=== PATIENT | male | born 1940 | race Caucasian/White ===

== ENCOUNTER 2023-11-10 19:59 | Emergency (ER) | payer OTHER, SELFPAY ==
[2023-11-10 20:00] VITALS: BP 186/86; PULSE 80; RESP 18; TEMP 36.9; O2SAT 100; BMI 22.5
--- NOTE | 2023-11-10 20:18 | EDS_ITS ---
HPI History of Present Illness Chief Complaint: Upper Extremity Injury Informant: patient Narrative Narrative: 83-year-old male states that this evening around 1730 hrs. he was sitting down when he suddenly felt a discomfort in his right biceps area. He states it began to swell and has progressively gotten larger and larger this evening. He notes some bruising beginning anteriorly. He states he was not lifting anything. He states is not really painful for him. He notes no symptoms below the elbow or above the shoulder. He takes a baby aspirin per day. States he has a history of a solitary kidney with kidney cancer. He states he takes an antibiotic for acne but does not know what it is. PFSH PFSH Medical History Hypertension Renal mass Allergy/AdvReac Type Severity Reaction Status Date / Time No Known Allergies Allergy Verified 11/10/23 20:06 Surgical History Hx of CABG Social History Smoking Status: Current every day smoker tobacco type: cigarettes ROS ROS ED Constitutional Constitutional ED: Denies chills or weight loss Eyes Eyes: Denies change in vision or diplopia ENT ENT ED: Denies ear pain, rhinorrhea or sore throat Cardiovascular Cardiovascular: Denies chest pain, orthopnea, palpitations or racing heartbeat Respiratory/Chest Respiratory/Chest: Denies cough, dyspnea or orthopnea Gastrointestinal Gastrointestinal: Denies abdominal pain, diarrhea, nausea or vomiting Genitourinary Genitourinary ED: Denies dysuria, hematuria or urinary frequency Musculoskeletal Musculoskeletal: Reports other Details: See history of present illness ; Denies arthralgias or myalgias Integumentary Denies abscess or rash Neurologic Neurologic: Denies headache(s) or weakness Psychiatric Psychiatric: Denies anxiety, depression, suicidal ideation or suicidal thoughts Endocrine Endocrinology: Denies polydipsia, polyphagia or polyuria Allergic/Immunologic Allergic/Immunologic ED: Denies mouth swelling, tongue swelling or urticaria EXAM Physical Exam Const Vital Signs: 11/10/23 20:00 Temperature 98.4 F Temperature Source Oral Pulse Rate 80 Respiratory Rate 18 Blood Pressure 186/86 H Blood Pressure Mean 119 Pulse Ox 100 Oxygen Delivery Method Room Air Positive well nourished and well developed General Appearance ED: well developed HEENT Reports normocephalic, head/scalp atraumatic and moist mucous membranes Eyes PERRL and EOMs intact bilaterally Neck no lymphadenopathy, supple and no JVD Resp normal respiratory effort and clear to auscultation bilaterally Cardio regular rate, regular rhythm and no murmurs GI normal to inspection, nondistended, normoactive bowel sounds and non-tender Palpation: soft Back/Spine no CVA tenderness and normal ROM Extremity Extremity Narrative: There is a large amount of swelling in the anterior aspect of the right arm. He is able to pronate supinate. He is able to flex and extend. Anterior aspect of the biceps region shows ecchymosis. He has a strong radial and ulnar pulse. Normal sensation of the hand. There does not appear to be any swelling in the posterior aspect of the arm in the triceps area. General Extremety ED: Negative for edema General Extremity: Negative for edema Neuro oriented x3 and CN's II-XII intact bilaterally Sensorium / Orientation: alert Motor Exam: strength 5/5 throughout Psych mental status grossly normal Mood & Affect: Negative for depressed or tearful Skin no rashes or lesions noted and no wounds MDM MDM MDM Narrative Medical decision making narrative: IV was established white count returns at 4 with a hemoglobin of 6.9. MCV 107.9 and he has a creatinine of 3.5. I do not have old values to compare to. This suggest to me that he probably has some degree of chronic anemia. His platelet count is 134. Coags are normal. Patient was taken to CT where a noncontrasted CT of the right upper arm was obtained. This demonstrated marked swelling of the biceps muscle concerning for intramuscular hematoma. Please see radiology read for further details. Patient was reassessed multiple times and slowly developed pain. Distally however the hand remains functional with strong radial and ulnar pulses and normal sensation. Patient was given TXA and Pantera wrap applied wrapping distal to proximal. Because the patient continues to have swelling and is now having pain concerned he could develop compartment syndrome which case I do not have orthopedics available to me tonight for management. I spoke with the patient who [place]. This is not something that the [facility] with typical handle on a emergent basis and would be best served at a trauma center. Contacted [facility] as the patient had no preference for facilities. Patient was discussed with on-call trauma surgeon and the on-call emergency physician. A repeat H&H was sent shows a hemoglobin of 6.2. I am goi ng to see if I can get him a unit of blood before transfer. History & Record Review Discussion w/independent historian: Patient Management Discussion w/another healthcare provider: Forming Machine Tender ([facility] Trauma Surgeon and on duty ED physician) Critical Care Time Critical Care Time: Yes Critical care time (excluding procedures): 30-74 minutes (35 min), Including time spent:, Discussing w/Patient &/or Family/Film Projector Operator, Discussing w/Consultants, Arranging Admission or Transfer and Performing Direct Patient Care at Bedside Discharge Plan Triage Chief Complaint: Upper Extremity Injury ED Provider: Mark Moreau Dx/Rx/DC Orders Clinical Impression: Anemia, Arm pain, right, Hematoma of muscle Primary Care Provider: Aysha Mueller,Out of Referrals: [facility] Doctor,Out of [Primary Care Provider] - Disposition Disposition: Acute Care Hospital Discharge Location: [facility]
[2023-11-10 20:37] LABS: Absolute Lymphocyte Count 0.58 X10^3/uL (0.83-4.51); Absolute Neutrophil Count 3.2 X10^3/uL (2.0-7.7); Basophil# 0.01 X10^3/uL; Basophil% 0.2 % (0-1); Eosinophil# 0.15 X10^3/uL; Eosinophils% 3.7 % (0-5); Hematocrit 21.8 % (40-54); Hemoglobin 6.9 g/dL (13.0-16.5); Lymphocyte # 0.58 X10^3/ul (0.83-4.51); Lymphocyte % 14.5 % (19-41); Mean Corp Hgb Conc 31.7 g/dL (32-36); Mean Corpuscular Hgb 34.2 pg (27.0-32.0); Mean Corpuscular Volume 107.9 fL (80-94); Monocyte# 0.06 X10^3/uL; Monocyte% 1.5 % (0-10); NRBC Flagged by Analyzer 0 % (0-5); Neutrophil % 79.9 % (47-70); POSITIVE DIFFERENTIAL YES; Platelet Count 134 K/mm3 (150-450); RBC Distribution Width CV 15.4 % (11.6-14.6); RBC Distribution Width SD 61.2 fl (35.1-43.9); Red Blood Count 2.02 M/mm3 (4.6-6.2)
[2023-11-10 20:45] LABS: International Normalized Ratio 1.1; Prothrombin Time (Protime)PT. 14.4 SECONDS (11.7-14.9)
[2023-11-10 20:46] LABS: Anion Gap 6 (5-15); BUN 54 mg/dL (7-18); BUN/Creat Ratio 15.4 RATIO (10-20); Calcium,Total 8.2 mg/dL (8.5-10.1); Chloride 111 mmol/L (98-107); Creatinine, Serum 3.51 mg/dL (0.70-1.30); EST Glomerular Filtration Rate 18 mL/min (>60); Est Glom Filt Rate - Afr Amer 22 mL/min (>60); Estimated Creatinine Clearance 15.22 ml/min; Glucose 180 mg/dL (74-106); Partial Thromboplast Time 26.3 Seconds (24.1-36.2); Sodium Level 141 mmol/L (136-145)
--- NOTE | 2023-11-10 21:11 | CT_ITS ---
HISTORY: swelling Date: 11/10/2023 10:46 PM Technique: CT examination obtained with standard protocol including axial imaging with multiplanar reconstructions. Location: RIGHT upper extremity Contrast: No contrast administered Radiation Dose (provided by facility) CTDIvol (24.68 ) mGy, DLP ( 3783.25) mGy-cm Comparison: No previous imaging available for comparison. FINDINGS: BONY ELEMENTS: 1. Normal alignment bony elements without evidence of fracture malalignment. No destructive bony process noted. 2. Mild degenerative periarticular erosions involving the greater tubercle. JOINT SPACES: 1. Normal appearance of alignment of bony elements and joint spaces. No joint effusion 2. Mild osteophyte formation at the glenohumeral joint and at the AC joint. DEEP MUSCULAR COMPARTMENTS: 1. Marked abnormality of the flexor compartment of the arm with marked enlargement of the biceps with heterogeneous appearance, focal areas of hyperdensity are noted, and findings suspicious of an intramuscular hematoma. Intramuscular abscess or mass is not completely excluded on current noncontrast exam however felt less likely. 2. Normal appearance of the deltoid, and the extensor compartments. NEURAL VASCULAR COMPARTMENTS: 1. Normal appearance of the neural vascular compartments SUBCUTANEOUS SOFT TISSUES. 1. Moderate subcutaneous soft tissue swelling/edema noted involving the anterior upper arm. OTHER: There is a large complex mass in the RIGHT subhepatic upper abdomen incompletely evaluated on current examination which appears represent a large renal mass. CT/Extremity Upper without Contra IMPRESSION: 1. Marked abnormality of the RIGHT biceps with significant swelling, heterogeneous density with focal areas of diffusely increased density, findings suspicious of a large loculated intramuscular hematoma. 2. Additional considerations are felt less likely which could include intramuscular abscess and less likely mass. 3. Consider follow-up evaluation with MRI for further clarification if clinically necessary. 4. Normal appearance of the bony elements, mild degenerative changes involving the glenohumeral joint and RIGHT AC joint. 5. Large RIGHT renal mass suspected however incompletely visualized on current examination. Electronically Signed: Alen Wilkins MD at 0:05 EDT ,
[2023-11-10 21:26] LABS: Differential Indicated SCAN CRITERIA MET
[2023-11-10 21:28] LABS: Anisocytosis 1+; Hypochromasia RARE; Macrocytosis 1+; Ovalocyte RARE; Platelet Estimate SLT DEC (ADEQ); Red Cell Morphology N CHROM NORMAL (NORM C&C)
[2023-11-10 22:00] VITALS: BP 187/91; PULSE 75; RESP 20; O2SAT 100
[2023-11-10] MEDS: Morphine 4 MG/ML Syringe IV (22:37)
[2023-11-10] MEDS: Ondansetron 4 MG/2 ML Vial IV (22:37)
[2023-11-11] VITALS: BP 160/83; PULSE 69; RESP 20; O2SAT 100
[2023-11-11 00:37] LABS: Hemoglobin 6.2 g/dL (13.0-16.5)
[2023-11-11] MEDS: TRANEXAMIC ACID 1,000 MG in 0.9% Normal Saline (100mL Bag) 100 ML 440 MG IV (00:57)
[2023-11-11 02:14] VITALS: BP 155/82; PULSE 113; RESP 25; TEMP 36.8; O2SAT 100
[2023-11-11 02:30] VITALS: BP 151/91; PULSE 89; RESP 16; TEMP 36.6; O2SAT 100
[2023-11-11 03:19] VITALS: BP 120/99; PULSE 84; RESP 14; TEMP 36.5; O2SAT 100
[2023-11-11 03:24] VITALS: BP 120/99; PULSE 80; RESP 18; TEMP 36.5; O2SAT 100
[2023-11-12 13:29] LABS: Pathologist Review Reviewed
== END 2023-11-11 03:31 | disposition short-term general hospital (02) ==
PROVIDERS: Emergency Provider Emergency Medicine; Visit Provider Emergency Medicine
DX: D64.9 Anemia, unspecified (principal); F17.210 Nicotine dependence, cigarettes, uncomplicated; M79.601 Pain in right arm; I10 Essential (primary) hypertension; Z79.82 Long term (current) use of aspirin; Q60.0 Renal agenesis, unilateral; Z85.528 Personal history of other malignant neoplasm of kidney
CPT/HCPCS: 36430; 73200; 80048; 85014; 85018; 85025; 85610; 85730; 86850; 86900; 86901; 86920; 96361; 96374; 96375; 99284; P9016; J2405

== ENCOUNTER 2024-02-04 19:35 | Inpatient (IN) | payer OTHER, SELFPAY ==
[2024-02-04] VITALS (7 sets, daily range): BP systolic 131–151; BP diastolic 78–111; PULSE 70–102; RESP 19–30; TEMP 36.7–36.8; O2SAT 93–100; BMI 21.7; BMI 21.9
--- NOTE | 2024-02-04 19:47 | EKG12_ITS ---
Test Reason : SOB Blood Pressure : / mmHG Vent. Rate : 079 BPM Atrial Rate : 079 BPM P-R Int : 170 ms QRS Dur : 096 ms QT Int : 406 ms P-R-T Axes : 000 024 230 degrees QTc Int : 465 ms Sinus rhythm with occasional Premature ventricular complexes and Premature atrial complexes T wave abnormality, consider anterior ischemia Prolonged QT Abnormal ECG Confirmed by Kyle Gong ([id number]), newspaper editor managing RYANN ANDUJAR ([id number]) on 02/06/2024 11:33:42 AM Referred By: LINNEA Confirmed By:Kyle Gong
--- NOTE | 2024-02-04 19:55 | RAD_ITS ---
INDICATION: Dyspnea EXAMINATION/TECHNIQUE: X-RAY - XR Chest 2 Views COMPARISON: None. FINDINGS: LINES/DEVICES: None. LUNGS: Hyperinflation. Hazy left lower lobe retrocardiac opacity with pleural effusion. No consolidation or vascular congestion. MEDIASTINUM AND CARDIOVASCULAR STRUCTURES: Cardiac silhouette within upper normal limits. CABG changes. BONES AND SOFT TISSUES: No acute findings. RAD/Chest PA and Lateral IMPRESSION: Left lower lobe infiltrate with pleural effusion. Findings consistent with pneumonia. Recommend follow-up to complete resolution. Electronically Signed: Billy Kim MD at 20:37 EDT ,
[2024-02-04 20:07] LABS: Absolute Lymphocyte Count 0.67 X10^3/uL (0.83-4.51); Absolute Neutrophil Count 2.5 X10^3/uL (2.0-7.7); Basophil# 0.01 X10^3/uL; Basophil% 0.3 % (0-1); Eosinophil# 0.13 X10^3/uL; Eosinophils% 3.8 % (0-5); Hematocrit 23.1 % (40-54); Lymphocyte # 0.67 X10^3/ul (0.83-4.51); Lymphocyte % 19.6 % (19-41); Mean Corp Hgb Conc 30.3 g/dL (32-36); Mean Corpuscular Hgb 35.4 pg (27.0-32.0); Mean Corpuscular Volume 116.7 fL (80-94); Mean Platelet Vol. 12.7 fl (6.2-12.0); Monocyte# 0.04 X10^3/uL; Monocyte% 1.2 % (0-10); NRBC Flagged by Analyzer 1.5 % (0-5); Neutrophil # 2.54 X10^3/uL (2.7-7.7); Neutrophil % 74.2 % (47-70); POSITIVE COUNT YES; POSITIVE MORPHOLOGY YES; Platelet Count 66 K/mm3 (150-450); RBC Distribution Width SD 87.8 fl (35.1-43.9); Red Blood Count 1.98 M/mm3 (4.6-6.2); White Blood Count 3.4 K/mm3 (4.4-11.0)
--- NOTE | 2024-02-04 20:12 | EDS_ITS ---
HPI History of Present Illness Chief Complaint: Shortness of Breath Detail of Chief Complaint: Patient denies shortness of breath he states he is here because his legs ar Informant: patient Onset/Context/Timing Onset: Days Context: Gradual Onset Timing: Continuous Quality: Edema lower extremities Location: Distal his knees Current Severity: Moderate Maximum Severity: Moderate Worsened by: Suspect due to decreased movement and sitting Relieved by: Nothing Associated Symptoms Associated Symptoms: No chest pain, no shortness of breath, no orthopnea or PND PFSH PFSH Medical History Renal mass Hypertension Allergy/AdvReac Type Severity Reaction Status Date / Time No Known Allergies Allergy Verified 02/04/24 19:35 Surgical History Hx of CABG Social History Smoking Status: Current every day smoker tobacco type: cigarettes ROS ROS ED Constitutional Constitutional ED: Denies chills, fever(s), subjective, sweats or weight loss Eyes Eyes: Denies blurry vision, change in vision or diplopia ENT ENT ED: Denies ear pain, rhinorrhea or sore throat Cardiovascular Cardiovascular: Denies chest pain, orthopnea, palpitations or paroxysmal nocturnal dyspnea Respiratory/Chest Respiratory/Chest: Denies cough, dyspnea, dyspnea on exertion, orthopnea or paroxysmal nocturnal dyspnea Gastrointestinal Gastrointestinal: Denies abdominal pain, nausea or vomiting Musculoskeletal Musculoskeletal: Denies arthralgias or myalgias Integumentary Reports other Details: Blisters and bruising dorsal surface of the right and left heart ; Denies abscess Neurologic Neurologic: Denies headache(s) or paresthesias Endocrine Endocrinology: Denies cold intolerance or heat intolerance Hematologic/Lymphatic Hematologic/Lymphatic: Reports systems reviewed and no addt'l complaints, except as documented EXAM Physical Exam Const Vital Signs: 02/04/24 19:35 02/04/24 19:35 02/04/24 19:41 Temperature 98.3 F 98.3 F Temperature Source Oral Oral Pulse Rate 82 80 Respiratory Rate 26 H 30 H Respiratory Effort Short of Breath Respiratory Depth Normal Respiratory Pattern Normal Blood Pressure 151/87 H 151/87 H Blood Pressure Mean 108 108 Pulse Ox 100 100 Oxygen Delivery Method Room Air Room Air Room Air Positive well nourished and well developed Constitutional Narrative: Blood pressure is elevated. Patient's respiratory rate is rapid however on my exam he was not breathing rapidly and appears in no respiratory distress. General Appearance ED: well developed, NAD and pallor; Negative for cyanotic or diaphoretic HEENT Reports moist mucous membranes HEENT Narrative: Head is atraumatic normocephalic. Ears normal. Nares patent. Conjunctive is slightly pink. Eyes PERRL and EOMs intact bilaterally General Eye ED: Negative for scleral icterus Neck no lymphadenopathy, supple and no JVD Chest Wall inspection of chest normal and palpation of chest normal Resp normal respiratory effort and clear to auscultation bilaterally Cardio regular rate, regular rhythm, S1 normal heart sound, S2 normal heart sound and no murmurs GI normal to inspection, nondistended, normoactive bowel sounds, non-tender, non- distended and no masses; Negative for hepatosplenomegaly Back/Spine no CVA tenderness Extremity Extremity Narrative: Patient has marked pitting edema of his lower extremities. There are blisters noted which have spontaneously ruptured. Is no evidence infection. There is a bruise noted dorsal surface of the left foot. Neuro oriented x3 and CN's II-XII intact bilaterally Sensorium / Orientation: alert Psych mental status grossly normal Skin no rashes or lesions noted Skin Narrative: Blisters that spontaneously ruptured dorsum of the left and right foot. General Skin Exam: pallor; Negative for jaundice MDM MDM MDM Narrative Medical decision making narrative: Differential diagnosis includes CHF, malnourishment with hypoalbuminemia, dependent edema because he sits a lot. Since he has no abnormal auscultatory findings and denies orthopnea chest x-ray was not obtained. Lab Data Attestation: I reviewed the patient's lab results. Lab results narrative: Patient has chronic macrocytic anemia. His hemoglobin slightly higher than normal. Electrolyte panel reveals an elevated BUN and creatinine from baseline. BUN is 73 with creatinine of 4.45. His estimated GFR is 14. Albumin is low at 2.2. Labs: Laboratory Results - last 24 hr 02/04/24 19:43 WBC 3.4 L RBC 1.98 L Hgb 7.0 L Hct 23.1 L MCV 116.7 H MCH 35.4 H MCHC 30.3 L RDW Std Deviation 87.8 H RDW Coeff of Corinna 21.0 H Plt Count 66 L MPV 12.7 H Immature Gran % (Auto) 0.900 Neut % (Auto) 74.2 H Lymph % (Auto) 19.6 Angelina % (Auto) 1.2 Eos % (Auto) 3.8 Baso % (Auto) 0.3 Absolute Neuts (auto) 2.5 Absolute Lymphs (auto) 0.67 L Nucleated RBC % 1.5 Sodium 140 Potassium 4.4 Chloride 111 H Carbon Dioxide 23.0 Anion Gap 6 BUN 73 H Creatinine 4.45 H Estim Creat Clear Calc 11.53 Est GFR (MDRD) Af Amer 16 L Est GFR (MDRD) Non-Af 14 L BUN/Creatinine Ratio 16.4 Glucose 111 H Calcium 7.7 L Total Bilirubin 0.60 AST 11 L ALT 17 Alkaline Phosphatase 63 Total Protein 7.5 Albumin 2.2 L Globulin 5.3 H Albumin/Globulin Ratio 0.4 L Radiography Chest X-Ray - ED: 2 View and Read by ED Physician (No acute abnormality. Cardiac silhouette is normal. Cardiac size is normal. Lung parenchyma is unremarkable. There is no effusion. There is no infiltrate. [place]um is unremarkable. Osseous trucks unremarkable. This is 100 reviewed interpreted by me at 2011.) Diagnostic Testing: Clinical Impression(s) from Imaging Studies Chest X-Ray 02/04/24 19:55 IMPRESSION: Left lower lobe infiltrate with pleural effusion. Findings consistent with pneumonia. Recommend follow-up to complete resolution. Electronically Signed: Billy Kim MD at 20:37 EDT Reading Location ID and State: [facility] / [place] Tel , Service support , Radiology report was read. Patient film is first about suboptimal. I disagree that there is a left lower lobe pneumonia. Patient does not have an elevated white count. He is not febrile or hypoxic. His pulse ox is 100% on room air more importantly his lung exam revealed no rales, wheezing or rhonchi. EKG Initial EKG: Attestation: I personally reviewed and interpreted this EKG as follows: Interpretation: Sinus Rhythm (EKG per nurse protocol is unremarkable. Normal sinus rhythm with an occasional premature ventricular beat. Rate is 79. Parables 170 ms per cures duration 96 ms. QT duration 406 ms. [place] is normal. There is prolongation of the QT interval. There is no ossific changes noted in lead I to and aVL) Discharge Plan Triage Chief Complaint: Shortness of Breath ED Provider: Jean Paul Dunne Dx/Rx/DC Orders Clinical Impression: Lymphedema of both lower extremities, Anemia, macrocytic, Edema due to hypoalbuminemia, Acute renal failure superimposed on chronic kidney disease Instructions: Anemia, ED Peripheral Edema, Bilateral Primary Care Provider: [place] Referrals: [facility] Doctor,Out of [Non-Staff] - 1-2 Weeks Activity Restrictions/Additional Instructions: 1. Must elevate feet above your nose 2. Need compressive thigh-high hose 3. Wound care for blisters on the feet 4. Male nourishment Print Language: Czech Disposition Disposition: Home, Self Care
[2024-02-04 20:31] LABS: ALB/GLOB Ratio 0.4 RATIO (0.9-2.4); AST(SGOT) 11 U/L (15-37); Alanine Aminotransfer ALT/SGPT 17 U/L (16-61); Albumin, Serum 2.2 g/dL (3.2-5.0); Alkaline Phosphatase 63 U/L (45-117); Anion Gap 6 (5-15); BUN 73 mg/dL (7-18); BUN/Creat Ratio 16.4 RATIO (10-20); Calcium,Total 7.7 mg/dL (8.5-10.1); Chloride 111 mmol/L (98-107); Creatinine, Serum 4.45 mg/dL (0.70-1.30); Differential Indicated SCAN CRITERIA MET; EST Glomerular Filtration Rate 14 mL/min (>60); Est Glom Filt Rate - Afr Amer 16 mL/min (>60); Estimated Creatinine Clearance 11.53 ml/min; Globulin 5.3 g/dL (2.2-4.2); Glucose 111 mg/dL (74-106); Potassium 4.4 mmol/L (3.5-5.1); Protein, Total 7.5 g/dL (6.4-8.2); Sodium Level 140 mmol/L (136-145)
[2024-02-04 21:01] LABS: Anisocytosis 2+; Hypochromasia RARE; Macrocytosis 2+; Ovalocyte RARE; Platelet Estimate MOD DEC (ADEQ); Red Cell Morphology N CHROM NORMAL (NORM C&C)
--- NOTE | 2024-02-04 22:47 | HP.PCM_ITS ---
HPI - General General Date of Admission: 02/04/24 Date of Service: 02/04/24 Chief Complaint: Shortness of breath HPI Narrative TONIA DOLAN, is a 83 M who presents to the emergency room with chief complaint of shortness of breath. Patient has a past medical history of chronic kidney disease and lymphedema. Patient complains of worsening shortness of breath with lower extremity edema that is pitting and seeping. Patient has trouble ambulating states he only eats about 1 sandwich per day. Initial plan from the emergency room was to admit patient directly to [facility] however there were no beds available at the time and hospitalist service was asked to admit patient for observation while they are pending transfer for hospital bed at [facility]. Patient is unable to care for himself at home therefore will admit to observation pending transfer to [facility]. Patient denies any nausea, vomiting or fever or chills at present time he does have severe lower extremity edema from his knees to his ankles and feet and shortness of breath. Laboratory studies reveal white blood cell count of 3.4 with, hemoglobin 7, hematocrit 23, platelets 66, sodium 140, potassium 4.4, chloride 111, bicarb 23, BUN 73, creatinine 4.45 (up from 3.51 3 months ago), glucose 111, albumin 2.2 chest x-ray reveals left lower lobe infiltrate [facility] Medical History Renal mass Hypertension Allergy/AdvReac Type Severity Reaction Status Date / Time No Known Allergies Allergy Verified 02/04/24 19:35 Surgical History Hx of CABG Social History Smoking Status: Current every day smoker tobacco type: cigarettes ROS Constitutional Constitutional: Denies chills or fever(s) Eyes Eyes: Denies blurry vision ENT HEENT: Denies abnormal hearing Cardiovascular Cardiovascular: Denies chest pain Respiratory/Chest Respiratory/Chest: Reports shortness of breath at rest Gastrointestinal Gastrointestinal: Denies abdominal pain Genitourinary Genitourinary: Denies dysuria Musculoskeletal Musculoskeletal: Denies back pain Integumentary Integumentary: Denies dry skin Neurologic Neurologic: Denies confusion Psychiatric Psychiatric: Denies anxiety Endocrine Endocrinology: Reports change in body appearance Vital Signs Vital Signs Vital Signs: 02/04/24 19:35 02/04/24 19:35 02/04/24 19:41 Temperature 98.3 F 98.3 F Temperature Source Oral Oral Pulse Rate 82 80 Respiratory Rate 26 H 30 H Respiratory Effort Short of Breath Respiratory Depth Normal Respiratory Pattern Normal Blood Pressure 151/87 H 151/87 H Blood Pressure Mean 108 108 Pulse Ox 100 100 Oxygen Delivery Method Room Air Room Air Room Air 02/04/24 20:35 02/04/24 21:35 02/04/24 22:00 Temperature Temperature Source Pulse Rate 70 71 74 Respiratory Rate 23 H 20 H 19 H Respiratory Effort Respiratory Depth Respiratory Pattern Blood Pressure 131/97 H 149/78 H 147/111 H Blood Pressure Mean 108 101 123 Pulse Ox 100 93 95 Oxygen Delivery Method Room Air Room Air Room Air 02/04/24 22:44 Temperature 98.1 F Temperature Source Pulse Rate 81 Respiratory Rate 22 H Respiratory Effort Respiratory Depth Respiratory Pattern Blood Pressure 138/88 H Blood Pressure Mean 104 Pulse Ox 97 Oxygen Delivery Method Weight Weight: 138 lb Body Mass Index (BMI) 21.7 Physical Exam Const oriented x3 Constitutional Narrative: Enlarged mass on left temporomandibular joint consistent with salivary gland enlargement Orientation / Consciousness: lethargic Eyes PERRL and EOMs intact bilaterally Neck No no lymphadenopathy Lymph Lymphatic: Negative for no lymphadenopathy noted Resp Auscultation: rales bilateral and diminished lung sounds Cardio regular rate, regular rhythm, S1 normal heart sound and S2 normal heart sound GI normal to inspection, nondistended, normoactive bowel sounds Extremity normal capillary refill General Extremity: edema bilateral lower extremity Details: severe Skin Skin Narrative: Mild seeping from edema of the lower extremities Neuro no focal motor deficits and no sensory deficits noted Speech: speech normal Psych thought process normal, cooperative and affect normal Results Lab / Micro Data 02/04/24 19:43 02/04/24 19:43 Labs: Laboratory Results - last 24 hr 02/04/24 19:43: WBC 3.4 L, RBC 1.98 L, Hgb 7.0 L, Hct 23.1 L, MCV 116.7 H, MCH 35.4 H, MCHC 30.3 L, RDW Std Deviation 87.8 H, RDW Coeff of Corinna 21.0 H, Plt Count 66 L, MPV 12.7 H, Immature Gran % (Auto) 0.900, Neut % (Auto) 74.2 H, Lymph % (Auto) 19.6, [place] % (Auto) 1.2, Eos % (Auto) 3.8, Baso % (Auto) 0.3, Absolute Neuts (auto) 2.5, Absolute Lymphs (auto) 0.67 L, Nucleated RBC % 1.5, Platelet Estimate MOD DEC, RBC Morphology N CHROM, Hypochromasia RARE, Anisocytosis 2+, Macrocytosis 2+, Ovalocytes RARE, Sodium 140, Potassium 4.4, C hloride 111 H, Carbon Dioxide 23.0, Anion Gap 6, BUN 73 H, Creatinine 4.45 H, Estim Creat Clear Calc 11.53, Est GFR (MDRD) Af Amer 16 L, Est GFR (MDRD) Non-Af 14 L, BUN/Creatinine Ratio 16.4, Glucose 111 H, Calcium 7.7 L, Total Bilirubin 0.60, AST 11 L, ALT 17, Alkaline Phosphatase 63, Total Protein 7.5, Albumin 2.2 L, Globulin 5.3 H, Albumin/Globulin Ratio 0.4 L Imaging Radiology Impression Chest X-Ray 02/04/24 19:55 IMPRESSION: Left lower lobe infiltrate with pleural effusion. Findings consistent with pneumonia. Recommend follow-up to complete resolution. Electronically Signed: Billy Kim MD at 20:37 EDT Reading Location ID and State: [address] [place] [address] Tel , Service support , Assessment & Plan Assessment/Plan (1) Pneumonia: (2) Adult failure to thrive: (3) Acute renal failure superimposed on chronic kidney disease: (4) Edema due to hypoalbuminemia: (5) Anemia, macrocytic: (6) Lymphedema of both lower extremities: PLAN: Plan 1 failure to thrive.?Patient is unable to care for himself and will be admitted to [facility] for long-term care. 2. Pneumonia?Place patient on levofloxacin 500 mg IV daily 3. Acute on chronic renal failure?gentle IV hydration overnight repeat BMP in the morning 4. Edema due to hypoalbuminemia?recommend compression wrap during the day on lower extremities and consider diuretic therapy when renal function improves 5. DVT prophylaxis?SCDs if patient can tolerate Charges/Coding Visit Charges OBSV E&M: 89958 Observ/hosp same date L2
[2024-02-05] VITALS (14 sets, daily range): BP systolic 130–147; BP diastolic 69–88; PULSE 59–88; RESP 16–22; TEMP 36.5–37.2; O2SAT 97–100
[2024-02-05] MEDS: levoFLOXacin IV 500 MG/100 ML BAG 100 MG IV (00:04)
[2024-02-05] MEDS: 0.9% Saline Lock 10 ML Syringe IV ×2 (00:04→21:10)
[2024-02-05] MEDS: 0.9% Normal Saline (1000mL) 1,000 ML 75 ML IV ×2 (00:04→16:32)
[2024-02-05 08:01] LABS: Anion Gap 7 (5-15); BUN 70 mg/dL (7-18); Calcium,Total 7.4 mg/dL (8.5-10.1); Chloride 112 mmol/L (98-107); Creatinine, Serum 4.12 mg/dL (0.70-1.30); EST Glomerular Filtration Rate 15 mL/min (>60); Est Glom Filt Rate - Afr Amer 18 mL/min (>60); Estimated Creatinine Clearance 12.63 ml/min; Glucose 83 mg/dL (74-106); Potassium 4.6 mmol/L (3.5-5.1); Sodium Level 139 mmol/L (136-145)
[2024-02-05] MEDS: Ensure Plus High Protein 120 ML LIQUID PO ×3 (08:18→16:32)
[2024-02-05 09:58] LABS: Absolute Lymphocyte Count 0.86 X10^3/uL (0.83-4.51); Absolute Neutrophil Count 2.2 X10^3/uL (2.0-7.7); Basophil# 0.01 X10^3/uL; Basophil% 0.3 % (0-1); Eosinophil# 0.16 X10^3/uL; Eosinophils% 4.9 % (0-5); Hematocrit 21.7 % (40-54); Hemoglobin 6.8 g/dL (13.0-16.5); Lymphocyte # 0.86 X10^3/ul (0.83-4.51); Lymphocyte % 26.5 % (19-41); Mean Corp Hgb Conc 31.3 g/dL (32-36); Mean Corpuscular Hgb 36.8 pg (27.0-32.0); Mean Corpuscular Volume 117.3 fL (80-94); Monocyte# 0.04 X10^3/uL; Monocyte% 1.2 % (0-10); NRBC Flagged by Analyzer 0.9 % (0-5); Neutrophil # 2.15 X10^3/uL (2.7-7.7); Neutrophil % 66.5 % (47-70); POSITIVE COUNT YES; POSITIVE MORPHOLOGY YES; Platelet Count 57 K/mm3 (150-450); RBC Distribution Width CV 20.4 % (11.6-14.6); RBC Distribution Width SD 88.5 fl (35.1-43.9); Red Blood Count 1.85 M/mm3 (4.6-6.2); White Blood Count 3.2 K/mm3 (4.4-11.0)
[2024-02-05 10:18] LABS: Differential Indicated SCAN CRITERIA MET
[2024-02-05] MEDS: Albuterol 2.5 MG/3 ML VIAL.NEB. INHALATION ×2 (10:22→19:43)
[2024-02-05 10:57] LABS: Anisocytosis 2+; Differential Comment SCANNED; Platelet Estimate MKD DEC (ADEQ)
--- NOTE | 2024-02-05 11:50 | CASEMGMT ---
Addendum entered by Alondra Smart 02/05/24 15:22: Social Work [facility] called [facility] back. She states that pt is not service connected. If he were to need rehab, [facility] at [facility], would need transferred to [facility] to the hospital and then go from there. If pt were to need home health or DME, Dr. Julian Salazar would need to order home health, and Dr. Salazar's RN can help w/DME. If pt were to need aide services, RAD Tripp can help with this. As per Qasim, the home assessment was paused as pt came into the hospital. SW/JEAN-PAUL will continue to follow to assist w/appropriate discharge plan. LEONARD Franklin Original Note: Social Work SW met w/pt, spoke w/him regarding prior level of function and anticipated discharge plan. PCP/Specialists: [facility] goes to the [facility] Insurance: [facility] only has [facility] Prescriptions: Pt gets all meds from the [facility] Living arrangements/Prior level of function: Pt lives alone in a one story home with 3 steps into the garage. Pt has been independent with ADLs, though states it is becoming more difficult. Pt states it is difficult for him to clean, goes out to get sandwiches to eat. Pt does still drive. LW/POA: Pt has not completed these documents, not certain who he would put as POA. LNOK: Pt states his last sibling just . Pt is single, no children. DME: Pt does not use any, no home O2. Pt states he may have a walker/cane somewhere in the home from when his mother used DME HHC/SNF: No history of either. Pt states [facility]. Plan: SW spoke w/pt about longterm plan. Pt states from here would want to go home. Pt states eventually he knows he can't manage at home alone. Pt states is not service connected at all, but [facility] has been paying for what he needs. Pt may be interested in home O2 through the [facility] should he need it. Pt open to MOW as well. SW asked pt about going to [facility] for oysterman care, as that is documented. He states it was his understanding plan was to go to [facility] from heree, but not for longterm care. [facility] called the [facility], message left for RAD [place] to verify pt's service connection and to verify pt did have the initial home assessment. SW/CM will continue to follow, will see how pt does with therapy and see what else pt may need for discharge. LEONARD Franklin
--- NOTE | 2024-02-05 15:57 | CASEMGMT ---
Social Work SW received a call back from JEAN-PAUL Quach for pt from the [facility]. He states to call Maury at [phone], [phone], who is the RN for pt's physician. LEONARD Franklin
--- NOTE | 2024-02-05 17:17 | ECHOD_ITS ---
Reason For Study: Edema Procedure This was a 2D Doppler, Color Flow transthoracic echocardiogram. Exam performed portable in patient room. Left Ventricle Mildly dilated left ventricle. Moderate global left ventricular hypokinesis. Estimated LVEF 40%. Grade 2 diastolic dysfunction. Right Ventricle Normal RV size. Mild global right ventricular systolic dysfunction. Atria There is mild biatrial dilatation. Mitral Valve Moderate to severe posteriorly directed mitral valve regurgitation. Tricuspid Valve Mild tricuspid valve insufficiency. Right ventricular systolic pressure estimated to be 54 mmHg. Aortic Valve Moderate diffuse thickening of the aortic valve leaflets. Aortic valve leaflet excursion limited. Consider mild aortic valve stenosis. Pulmonic Valve The pulmonic valve is not well visualized. Mild (1+) pulmonic valve insufficiency. Great Vessels Normal sized aortic root. Pericardium/Pleural No pericardial effusion. Moderate size left pleural effusion. MMode/2D Measurements & Calculations LVIDd: 5.6 cm IVSd: 1.3 cm LVOT diam: 2.5 cm LVIDs: 4.8 cm LVPWd: 1.3 cm LVOT area: 5.1 cm2 RVDd: 5.2 cm FS: 14.5 % Ao root diam: 3.1 cm LAV(MOD-bp): 59.7 ml LVAd ap4: 39.2 cm2 LAV(MOD-bp) Indexed: 34.4 ml/m2 LVLd ap4: 8.9 cm LAV(MOD-sp2): 66.0 ml EDV(MOD-sp4): 144.3 ml LAV(MOD-sp4): 53.3 ml EDV(sp4-el): 147.5 ml LVAs ap4: 27.7 cm2 LVLs ap4: 7.6 cm ESV(MOD-sp4): 83.0 ml ESV(sp4-el): 85.5 ml EF(MOD-sp4): 42.5 % EF(sp4-el): 42.1 % LVAd ap2: 35.3 cm2 SV(MOD-sp4): 61.3 ml SV(MOD-sp2): 45.1 ml LVLd ap2: 8.0 cm EDV(MOD-sp2): 130.8 ml EDV(sp2-el): 132.6 ml LVAs ap2: 27.1 cm2 LVLs ap2: 7.2 cm ESV(MOD-sp2): 85.7 ml ESV(sp2-el): 86.8 ml EF(MOD-sp2): 34.5 % SV(sp4-el): 62.0 ml LA A4 area: 19.2 cm2 RA A4 area: 21.3 cm2 TAPSE: 1.1 cm Time Measurements MV dec time: 0.23 sec Doppler Measurements & Calculations MV E max felix: 93.9 cm/sec Lat Peak E' Felix: 7.6 cm/sec Med Peak E' Felix: 3.6 cm/sec MV A max felix: 80.3 cm/sec E/E' lat: 12.3 E/E' med: 26.2 MV E/A: 1.2 MV dec slope: 416.6 cm/sec2 Ao V2 max: 170.7 cm/sec LV V1 max: 116.4 cm/sec Ao max P.7 mmHg LV V1 max P.4 mmHg Ao V2 mean: 104.0 cm/sec LV V1 mean P.7 mmHg Ao mean P.5 mmHg LV V1 mean: 93.2 cm/sec Ao V2 VTI: 28.6 cm LV V1 VTI: 20.8 cm AV (velocity ratio): 0.73 DAGO(I,D): 3.7 cm2 DAGO(V,D): 3.5 cm2 MR max felix: 538.7 cm/sec SV(LVOT): 105.7 ml PA V2 max: 122.4 cm/sec MR max P.5 mmHg PA max PG (full): 3.7 mmHg MR mean felix: 414.9 cm/sec MR mean P.1 mmHg MR VTI: 159.2 cm TR max felix: 312.3 cm/sec TR max P.0 mmHg ECHO/Echo Complete Interpretation Summary Mildly dilated left ventricle. Moderate global left ventricular hypokinesis. Estimated LVEF 40%. Grade 2 diast olic dysfunction. Mild global right ventricular systolic dysfunction. There is mild biatrial dilatation. Moderate to severe posteriorly directed mitral valve regurgitation. Mild tricuspid valve insufficiency. Right ventricular systolic pressure estimated to be 54 mmHg. Aortic valve leaflet excursion limited. Consider mild aortic valve stenosis. Mild (1+) pulmonic valve insufficiency. Moderate size left pleural effusion. Ordering Physician: Arcelia Hutson Referring Physician: [facility] Performed By: Marie Gutierrez, ORLIN, RVT
--- NOTE | 2024-02-05 17:21 | PN.HOSP_ITS ---
Subjective Subjective Patient asking if he can go home. We discussed that he is not anywhere near ready to go home at this time. Multiple lab abnormalities and clinical findings. He is agreeable to go for rehab if need be. I did discuss with him that were not even close to getting him out of the hospital to get as he has significant workup that needs to be performed. Objective Data Objective Data Vital Signs: Vital Signs Temp Pulse Resp BP Pulse Ox O2 Del Method O2 Flow Rate 98.9 F 59 L 18 130/76 H 100 Room Air 3 02/05/24 16:33 02/05/24 16:33 02/05/24 16:36 02/05/24 16:33 02/05/24 16:33 02/05/24 16:36 02/05/24 14:58 Oxygen Flow Rate (L/min) 3 Oxygen Delivery Method Room Air Weight: 63.5 kg Body Mass Index (BMI) 21.9 Intake & Output: Intake and Output for Last 24 Hours 02/03/24 02/04/24 02/05/24 23:59 23:59 23:59 Intake Total 1868.75 / 1868.75 Output Total 350 / 350 Balance 1518.75 / 1518.75 Lab / Micro Data 02/05/24 06:37 02/05/24 06:37 Labs: Laboratory Results - last 24 hr 02/04/24 19:43: WBC 3.4 L, RBC 1.98 L, Hgb 7.0 L, Hct 23.1 L, MCV 116.7 H, MCH 35.4 H, MCHC 30.3 L, RDW Std Deviation 87.8 H, RDW Coeff of Corinna 21.0 H, Plt Count 66 L, MPV 12.7 H, Immature Gran % (Auto) 0.900, Neut % (Auto) 74.2 H, Lymph % (Auto) 19.6, Cotton % (Auto) 1.2, Eos % (Auto) 3.8, Baso % (Auto) 0.3, Absolute Neuts (auto) 2.5, Absolute Lymphs (auto) 0.67 L, Nucleated RBC % 1.5, Platelet Estimate MOD DEC, RBC Morphology N CHROM, Hypochromasia RARE, Anisocytosis 2+, Macrocytosis 2+, Ovalocytes RARE, Sodium 140, Potassium 4.4, C hloride 111 H, Carbon Dioxide 23.0, Anion Gap 6, BUN 73 H, Creatinine 4.45 H, Estim Creat Clear Calc 11.53, Est GFR (MDRD) Af Amer 16 L, Est GFR (MDRD) Non-Af 14 L, BUN/Creatinine Ratio 16.4, Glucose 111 H, Calcium 7.7 L, Total Bilirubin 0.60, AST 11 L, ALT 17, Alkaline Phosphatase 63, Total Protein 7.5, Albumin 2.2 L, Globulin 5.3 H, Albumin/Globulin Ratio 0.4 L 02/05/24 06:37: WBC 3.2 L, RBC 1.85 L, Hgb 6.8 L, Hct 21.7 L, MCV 117.3 H, MCH 36.8 H, MCHC 31.3 L, RDW Std Deviation 88.5 H, RDW Coeff of Corinna 20.4 H, Plt Count 57 L, MPV 13.0 H, Immature Gran % (Auto) 0.600, Neut % (Auto) 66.5, Lymph % (Auto) 26.5, Cotton % (Auto) 1.2, Eos % (Auto) 4.9, Baso % (Auto) 0.3, Absolute Neuts (auto) 2.2, Absolute Lymphs (auto) 0.86, Nucleated RBC % 0.9, Differential Comment SCANNED, Platelet Estimate MKD DEC, Anisocytosis 2+, Sodium 139, Potassium 4.6, Chloride 112 H, Carbon Dioxide 20.0 L, Anion Gap 7, BUN 70 H, C reatinine 4.12 H, Estim Creat Clear Calc 12.63, Est GFR (MDRD) Af Amer 18 L, Est GFR (MDRD) Non-Af 15 L, BUN/Creatinine Ratio 17.0, Glucose 83, Calcium 7.4 L Radiography Diagnostic Testing: Radiology Impression Chest X-Ray 02/04/24 19:55 IMPRESSION: Left lower lobe infiltrate with pleural effusion. Findings consistent with pneumonia. Recommend follow-up to complete resolution. Electronically Signed: Billy Kim MD at 20:37 EDT , Physical Exam Const alert, oriented x3 and no apparent distress; Negative for average body habitus, healthy appearing or well nourished Constitutional Narrative: Cooperative, elderly, white male, sitting up in a chair at the bedside, currently on 2 L,, appears chronically ill and malnourished HEENT head/scalp atraumatic and moist oral mucous membranes HEENT Narrative: Dentition is poor, Mallampati is 2, no thrush, temporal wasting noted Head and Scalp: normocephalic Eyes PERRL and EOMs intact bilaterally Eyes Narrative: No scleral icterus, marked conjunctival pallor bilaterally Neck no lymphadenopathy and supple Neck Narrative: Large left-sided mass at the angle of the mandible on the left--> chronic, trachea midline, no thyroid lodgment noted Resp normal respiratory effort, no retractions and no use of accessory muscles Resp Narrative: Diffusely diminished with more diminishment at the left base, dullness to percussion on the left base Auscultation: Negative for rales, rhonchi or wheezes Cardio regular rate, regular rhythm, S1 normal heart sound, S2 normal heart sound, no rub, no gallops and no clicks; Negative for no murmurs Cardio Narrative: 3/6 systolic murmur loudest at left lower sternal border GI normal to inspection, nondistended, normoactive bowel sounds, soft to palpation and non-tender GI Narrative: Abdomen is scaphoid Extremity Extremity Narrative: Marked bilateral lower extremity edema, no cyanosis or clubbing, significant loss of lean muscle mass Skin Skin Narrative: Skin is thin, multiple scattered ecchymosis diffusely Neuro oriented x3, CN's II-XII intact bilaterally, moves all extremities and no focal motor deficits Neuro Narrative: Severe generalized weakness bilaterally upper and lower extremities proximal greater than distal Speech: speech normal Psych affect normal Psych Narrative: Very pleasant, interacts appropriately, appreciative of care Assessment & Plan Assessment/Plan (1) Pancytopenia: (2) Lower extremity edema: (3) LUKE (acute kidney injury): (4) Severe malnutrition: (5) Pleural effusion, right: PLAN: Plan Pancytopenia -Etiology is unclear -Hold aspirin -Check HIV and hepatitis studies -Check CT chest and abdomen/pelvis without contrast due to renal dysfunction -Check coag panel -Check iron studies -Check ferritin level -Check reticulocyte count -Check B12 level -Check folic acid level -Check stool guaiac -Transfused 2 units packed red blood cells now -Repeat CBC in a.m. -Consult hematology/oncology LUKE on CKD stage IV -Patient with history of nephrectomy due to renal cell carcinoma -Baseline creatinine is unclear however he was seen in the emergency department on 11/10/2023 and serum creatinine was 3.51 -4.45 on admission -Renally dose all medications -Hold lisinopril -Continue gentle hydration but transition to LR -Check UA -Check CT abdomen pelvis without contrast -Consult nephrology Lower extremity edema -Check BNP -Check echocardiogram -Patient with extremely poor nutritional status so she could be related to poor oncotic pressure or renal dysfunction -Check UA to rule out nephrotic syndrome -Elevate Right pleural effusion -Checks x-ray reviewed and overall based on symptoms and clinical findings highly doubt pneumonia -Suspect this is an effusion with compression atelectasis -Check CT of the chest -discontinue antibiotics -If effusion is large on CT may need thoracentesis Generalized weakness/debility -suspect related to deconditioning and multiple comorbidities -PT/OT consultation -Case management social work consultation following and patient agreeable to placement at discharge Left facial mass -Patient reports he had this biopsied and it was not malignant -[facility] records requested Severe malnutrition -dietitian is following -Add multivitamin -Continue Ensure GERD -Continue home PPI Essential HTN/HPL/CAD -Appears this patient has had previous bypass as there are sternotomy wires on chest x-ray -Hold lisinopril -Hold amlodipine -Continue home atenolol -Hold niacinamide History of renal cancer -Status post nephrectomy -Imaging as above Depression/anxiety -Continue mirtazapine but alter dose from 45 mg daily to 7.5 mg daily due to renal dysfunction -Continue home BuSpar DVT prophylaxis -SCDs -Chemoprophylaxis contraindicated due to thrombocytopenia and anemia Patient appears to have a complex medical history however no data in our chart and patient is a poor historian. Requested records from [place]. Charges/Coding Visit Charges Inpatient E&M: 94089 [facility] Hosp L3
--- NOTE | 2024-02-05 17:23 | CT_ITS ---
STUDY: CT CHEST, ABDOMEN T PELVIS WITHOUT CONTRAST REASON FOR EXAM: Male, 83 years old. Renal mass RADIATION DOSAGE (If Supplied By Facility): CTDIvol = ( 7.24 ) mGy, DLP = ( 567.88 ) mGycm TECHNIQUE: Transaxial imaging was performed without the administration of intravenous contrast material. Multiplanar coronal and sagittal images were reformatted. Individualized dose optimization techniques were used for this CT. COMPARISON: No relevant priors. FINDINGS: CHEST There is lower lung consolidation. There are small bilateral pleural effusions. Sternal cerclage wires are present from a prior sternotomy. There are calcifications of the coronary arteries. Normal mediastinum. Normal hilar regions. Normal unenhanced pulmonary arteries. There is atherosclerotic calcification of the aortic arch with tortuosity and elongation of the aortic arch and descending thoracic aorta. There are multi-level degenerative changes of the thoracic spine. There is no demonstrated abnormality of the visualized upper abdomen. ABDOMEN There is lower lobe consolidation and pleural effusions. There are sternotomy wires. There are granulomatous calcifications in the liver The gallbladder is contracted. There are multiple benign calcified granulomata of the spleen. Normal pancreas. Normal bilateral adrenal glands. There is 9.2 cm increased density mass in the mid aspect of the kidney. There are 3.1 and 1.9 cm cysts of the right kidney. This is severe atrophy of the left kidney. Normal visualized stomach. Normal small intestine. There are multiple colonic diverticula consistent with diverticulosis. The appendix is visualized and appears normal. 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 Normal inferior vena cava. Normal retroperitoneum. There is left lower abdominal wall hernia containing small intestine loop. There are diffuse degenerative changes of the visualized lumbar spine. PELVIS Normal urinary bladder. Normal visualized small intestine. There are multiple colonic diverticula of the sigmoid colon consistent with chronic diverticulosis. There is no pelvic fluid. There is no pelvic lymphadenopathy or mass lesion. There is diffuse atherosclerotic calcification of the pelvic arteries. There is left lower abdominal wall hernia containing bowel loop. Normal osseous structures. CT/CT Chest, Abd, Pelvis WO Cont IMPRESSION: Large mass of the right kidney consistent with neoplastic malignancy. Contrast-enhanced exam recommended for further evaluation. There is severe atrophy of the left kidney. Abdominal aortic aneurysm. Colonic diverticulosis. No obstruction. Left lower abdominal wall hernia containing bowel. Lower lung consolidation and pleural effusions. Electronically Signed: Darrion Mortensen MD at 19:11 EDT ,
[2024-02-05 18:32] LABS: Immature Platelet Fraction 5.8 % (1.0-7.9); Platelet Count 58 K/mm3 (150-450); RET-HE 34.2 pg (30-35)
[2024-02-05] MEDS: Lactated Ringers 1,000 ML 75 ML IV (18:35)
[2024-02-05 18:49] LABS: Ferritin 608 ng/mL (26-388); Iron 84 ug/dL (65-175); Iron Binding Capacity,Total 171 ug/dL (250-450); PERCENT IRON SATURATION 49.1 % (15.0-55.0)
[2024-02-05 18:58] LABS: Vitamin B12 924 pg/mL (211-911)
[2024-02-05 19:25] LABS: Hepatitis B Surface Antibody Non-Reactive; Hepatitis C Antibody Non-Reactive (Nonreactive)
[2024-02-05 19:36] LABS: BNP,B-Type NATRIURETIC PEPTIDE > 5000.0 pg/mL (0-100)
[2024-02-05 20:27] LABS: HIV - WCH Non-Reactive (Nonreactive); Hepatitis B Surface Antigen Non-Reactive (Nonreactive)
[2024-02-05] MEDS: busPIRone 15 MG TABLET PO (21:09)
[2024-02-05] MEDS: Mirtazapine 15 MG Tablet 7.5 MG PO (21:10)
[2024-02-05 22:20] LABS: Mucous, Urine 0 SEEN /hpf (<or=2+); Red Blood Cells-Urine 0 SEEN /hpf (0-5); Squamous Epithelial Cells - UA 0 SEEN /hpf (0-5); White Blood Cells 0 SEEN /hpf (0-5)
[2024-02-05 22:26] LABS: Color, Urine Yellow (Yellow); Glucose, Dipstick Normal (Normal); Ketone-Dipstick Negative (Negative); Leukocyte Esterase-Dipstick Negative /ul (Negative); Nitrite-Dipstick Negative (Negative); Occult Blood-Urine 10 /ul (Negative); Protein-Dipstick 500 mg/dl (Negative); Specific Gravity, Urine 1.015 (1.002-1.030); Urine Bilirubin Dipstick Negative (Negative); Urine Clarity Clear (Clear); Urine Urobilinogen Normal (Normal)
--- NOTE | 2024-02-05 22:29 | PCM.HOSP.N ---
Hospitalist Note CT shows renal mass on the R. Interestingly, it is documented that he has had previous nephrectomy however both kidneys (L is markedly atrophic) are present on the CT. Will need to discuss with pt and see how he wants to pursue. Likely not a good surgical candidate given all of his complex medical issues present at this time. BNP markedly elevated. D/C IVF and give lasix 40 mg x 1 and check renal response.
[2024-02-05 22:32] LABS: Bacteria RARE /hpf (None Seen)
[2024-02-05 23:40] LABS: Urine Sodium 41 mmol/L (Not Establ.)
[2024-02-06] VITALS (13 sets, daily range): BP systolic 122–158; BP diastolic 74–94; PULSE 62–84; RESP 16–18; TEMP 36.3–37; O2SAT 93–100
[2024-02-06] MEDS: Furosemide 40 MG/4 ML Vial IV (00:30)
[2024-02-06] MEDS: 0.9% Saline Lock 10 ML Syringe IV ×3 (00:30→21:18)
--- NOTE | 2024-02-06 07:36 | PCM.PN.HOSP ---
Reason for Visit Reason for Visit: Diagnoses Nutritional anemia, unspecified (02/05/24) Other pancytopenia (02/05/24) Unspecified severe protein-calorie malnutrition (02/05/24) Other disorders of plasma-protein metabolism, not elsewhere classified (02/05/24) Lymphedema, not elsewhere classified (02/05/24) Pneumonia, unspecified organism (02/05/24) Pleural effusion, not elsewhere classified (02/05/24) Acute kidney failure, unspecified (02/05/24) Chronic kidney disease, unspecified (02/05/24) Localized edema (02/05/24) Adult failure to thrive (02/05/24) Subjective Subjective Spies he has been transferred to the [place] already. States that he has been aware of right kidney mass for years but did not wish to undergo surgery because he has an atrophic left kidney which would lead him to being on dialysis. Objective Data Objective Data Vital Signs: Vital Signs Temp Pulse Resp BP Pulse Ox O2 Del Method O2 Flow Rate 36.3 C L 66 16 158/88 H 100 Room Air 3 02/06/24 04:03 02/06/24 04:03 02/06/24 04:03 02/06/24 04:03 02/06/24 04:03 02/06/24 04:03 02/05/24 14:58 Oxygen Flow Rate (L/min) 3 Oxygen Delivery Method Room Air Weight: 63.5 kg Body Mass Index (BMI) 21.9 Intake & Output: Intake and Output for Last 24 Hours 02/04/24 02/05/24 02/06/24 23:59 23:59 23:59 Intake Total 3101.25 / 3101.25 2 / 2 Output Total 800 / 1050 250 / 250 Balance 2301.25 / 2051.25 -248 / -248 Lab / Micro Data 02/06/24 06:40 02/05/24 06:37 Labs: Laboratory Results - last 24 hr 02/05/24 06:37: WBC 3.2 L, RBC 1.85 L, Hgb 6.8 L, Hct 21.7 L, MCV 117.3 H, MCH 36.8 H, MCHC 31.3 L, RDW Std Deviation 88.5 H, RDW Coeff of Corinna 20.4 H, Plt Count 57 L, MPV 13.0 H, Immature Gran % (Auto) 0.600, Neut % (Auto) 66.5, Lymph % (Auto) 26.5, [place] % (Auto) 1.2, Eos % (Auto) 4.9, Baso % (Auto) 0.3, Absolute Neuts (auto) 2.2, Absolute Lymphs (auto) 0.86, Nucleated RBC % 0.9, Differential Comment SCANNED, Platelet Estimate MKD DEC, Anisocytosis 2+, Sodium 139, Potassium 4.6, Chloride 112 H, Carbon Dioxide 20.0 L, Anion Gap 7, BUN 70 H, Creatinine 4.12 H, Estim Creat Clear Calc 12.63, Est GFR (MDRD) Af Amer 18 L, Est GFR (MDRD) Non-Af 15 L, BUN/Creatinine Ratio 17.0, Glucose 83, Calcium 7.4 L 02/05/24 18:15: Immature Plt Fraction 5.8, Retic Count 3.30 H, Immature Retic Fraction 21.50 H, Retic Hgb Equivalent 34.2, Iron 84, TIBC 171 L, Iron Saturation 49.1, Ferritin 608 H, B-Natriuretic Peptide > 5000.0 H, Vitamin B12 924 H, Folate 7.10, Hep Bs Antigen Non-Reactive, Hep Bs Antibody Non-Reactive, Hepatitis C Antibody Non-Reactive, HIV 1&2 Antibody Non-Reactive, Blood Type B POSITIVE, Antibody Screen NEGATIVE, Direct Antiglob Test NEG w/POLYSPECIFIC, Crossmatch See Detail 02/05/24 20:30: Urine Color Yellow, Urine Clarity Clear, Urine pH 6.0, Ur Specific Horace 1.015, Urine Protein 500 H, Urine Glucose (UA) Normal, Urine Ketones Negative, Urine Occult Blood 10 H, Urine Nitrite Negative, Urine Bilirubin Negative, Urine Urobilinogen Normal, Ur Leukocyte Esterase Negative, Urine RBC 0 SEEN, Urine WBC 0 SEEN, Ur Squamous Epith Cells 0 SEEN, Urine Bacteria RARE, Urine Mucus 0 SEEN, Ur Random Sodium 41, Urine Creatinine 67.60 Radiography Diagnostic Testing: Radiology Impression Chest/Abdomen/Pelvis CT 02/05/24 17:23 IMPRESSION: Large mass of the right kidney consistent with neoplastic malignancy. Contrast-enhanced exam recommended for further evaluation. There is severe atrophy of the left kidney. Abdominal aortic aneurysm. Colonic diverticulosis. No obstruction. Left lower abdominal wall hernia containing bowel. Lower lung consolidation and pleural effusions. Electronically Signed: Darrion Mortensen MD at 19:11 EDT , Physical Exam Const alert and no apparent distress Constitutional Narrative: Cachectic. Afebrile. Resp normal respiratory effort, no retractions, no use of accessory muscles and clear to auscultation bilaterally Cardio regular rate, regular rhythm, S1 normal heart sound and S2 normal heart sound GI normal to inspection, nondistended, normoactive bowel sounds, soft to palpation, non-tender and non-distended Neuro Sensorium / Orientation: awake and alert Assessment & Plan Assessment/Plan (1) Pancytopenia: (2) Lower extremity edema: (3) LUKE (acute kidney injury): (4) Severe malnutrition: (5) Pleural effusion, right: PLAN: Plan Pancytopenia Suspect malignancy associated. Hold aspirin HIV and hepatitis negative. Coagulation studies negative. Iron studies, B12, folate WNL. Check stool guaiac Transfused 2 units packed red blood cells now. Consult hematology/oncology LUKE on CKD stage IV Patient with history of nephrectomy due to renal cell carcinoma Baseline creatinine is unclear however he was seen in the emergency department on 11/10/2023 and serum creatinine was 3.51 on admission was 4.45 Hold lisinopril Continue gentle hydration but transition to LR CT w/o contrast showed large mass right kidney Consult nephrology Renal mass. 9.2 cm oncology consulted. Likely malignant. Patient has been made aware of this mass for years now but did not wish to have it removed because he has an atrophic left kidney and he did not want to go onto dialysis. Lower extremity edema BNP elevated. echo pending Bilateral pleural effusion Doubt PNA Generalized weakness/debility PT OT Severe malnutrition dietitian is following. Add multivitamin. Continue Ensure Chronic conditions: Left facial mass-Patient reports he had this biopsied and it was not malignant-[facility] GERD-Continue home PPI Essential HTN/HPL/CAD-Appears this patient has had previous bypass as there are sternotomy wires on chest x-ray-Hold lisinopril-Hold amlodipine-Continue home atenolol-Hold niacinamide Depression/anxiety-Continue mirtazapine but alter dose from 45 mg daily to 7.5 mg daily due to renal dysfunction-Continue home BuSpar DVT prophylaxis: SCDs Patient requesting transfer to the [facility]. Case management has reached out to the [facility] and heard back after 3 PM. The family caseworker at the [facility] stated that the physician will review the data I want to send over and will inform us on the whether not the patient will be excepted. Greater than 55 minutes of which greater than 50% of time was reviewing the patient's case with him at bedside, discussing the renal mass, pancytopenia, bone marrow biopsy. Charges/Coding Visit Charges Inpatient E&M: 32200 Subs Hosp L3
[2024-02-06 07:54] LABS: Absolute Lymphocyte Count 0.88 X10^3/uL (0.83-4.51); Absolute Neutrophil Count 2.1 X10^3/uL (2.0-7.7); Basophil# 0.01 X10^3/uL; Basophil% 0.3 % (0-1); Eosinophil# 0.16 X10^3/uL; Hematocrit 28.3 % (40-54); Hemoglobin 8.8 g/dL (13.0-16.5); Lymphocyte # 0.88 X10^3/ul (0.83-4.51); Lymphocyte % 27.8 % (19-41); Mean Corp Hgb Conc 31.1 g/dL (32-36); Mean Corpuscular Hgb 33.6 pg (27.0-32.0); Mean Platelet Vol. 12.3 fl (6.2-12.0); Monocyte# 0.04 X10^3/uL; Monocyte% 1.3 % (0-10); NRBC Flagged by Analyzer 1.3 % (0-5); Neutrophil # 2.05 X10^3/uL (2.7-7.7); POSITIVE COUNT YES; POSITIVE MORPHOLOGY YES; RBC Distribution Width CV 24.8 % (11.6-14.6); RBC Distribution Width SD 96.6 fl (35.1-43.9); Red Blood Count 2.62 M/mm3 (4.6-6.2); White Blood Count 3.2 K/mm3 (4.4-11.0)
[2024-02-06 07:56] LABS: International Normalized Ratio 1.3; Prothrombin Time (Protime)PT. 15.7 SECONDS (11.7-14.9)
[2024-02-06 07:57] LABS: Partial Thromboplast Time 30.9 Seconds (24.1-36.2)
[2024-02-06] MEDS: Albuterol 2.5 MG/3 ML VIAL.NEB. INHALATION ×3 (08:03→19:31)
[2024-02-06 08:11] LABS: Differential Indicated SCAN CRITERIA MET; Platelet Count 49 K/mm3 (150-450)
[2024-02-06 08:12] LABS: Neutrophil % 64.7 % (47-70)
[2024-02-06 08:14] LABS: Phosphorus 3.8 mg/dL (2.5-4.9)
[2024-02-06 08:49] LABS: Anisocytosis 2+; Platelet Estimate MOD DEC (ADEQ)
--- NOTE | 2024-02-06 09:27 | ONC.CONSULT ---
Assessment & Plan Assessment/Plan (1) Pancytopenia: Status: Acute Code(s): D61.818 - Other pancytopenia Plan: Etiology of pancytopenia is multifactorial, includes renal failure, kidney mass, medications. Patient would like to be transferred to the [facility] for further management. If he stays then a bone marrow aspiration and biopsy can be done to rule out bone marrow failure. Suggest supportive care with PRBC transfusion as needed, Platelet transfusion if platelet is less than 10K. (2) Renal mass, right: Status: Acute Code(s): N28.89 - Other specified disorders of kidney and ureter Plan: Pt says he has declined therapy at the [facility]. To do observation. HPI Consult Data Date of Service:: 02/06/24 PCP / Referring Provider: [facility] Attending: Dr. Kp Hood DO Chief Complaint Chief Complaint: Asked to see Pt for Pancytopenia. History of Present Illness History of Present Illness: 83-year-old man with history of right kidney mass, atrophic left kidney, renal failure who has declined dialysis was admitted with leukopenia, anemia and thrombocytopenia. He reports that he receives treatment at the [facility]. Advanced Directives Power of Export Coordinator: No Living Will: No [facility] Medical History (Updated 02/06/24 @ 12:[address] Elvis Pickens MD) GERD (gastroesophageal reflux disease) Hyperlipidemia Anxiety Depression CKD (chronic kidney disease), stage IV Renal mass Hypertension Home Medications ?Medication ?Instructions ?Recorded ?Last Taken ?Type albuterol 90 mcg/actuation aerosol 90 mcg inhalation BID 02/05/24 Unknown History inhaler amlodipine 2.5 mg tablet 2.5 mg PO DAILY 02/05/24 Unknown History aspirin 81 mg tablet,delayed 81 mg PO DAILY 02/05/24 Unknown History release atenolol 25 mg tablet 25 mg PO DAILY 02/05/24 Unknown History buspirone 5 mg tablet 15 mg PO .HS 02/05/24 Unknown History cyanocobalamin (vitamin B-12) 1,000 mcg PO DAILY 02/05/24 Unknown History 1,000 mcg tablet (Vitamin B-12) lisinopril 10 mg tablet 10 mg PO DAILY 02/05/24 Unknown History magnesium oxide 400 mg PO DAILY 02/05/24 Unknown History mirtazapine 45 mg tablet 45 mg PO QHS 02/05/24 Unknown History niacinamide 500 mg tablet 500 mg PO TID 02/05/24 Unknown History pantoprazole 20 mg tablet,delayed 20 mg PO DAILY 02/05/24 Unknown History release zinc acetate 50 mg (zinc) capsule 50 mg PO DAILY 02/05/24 Unknown History Allergy/AdvReac Type Severity Reaction Status Date / Time No Known Allergies Allergy Verified 02/04/24 19:35 Surgical History (Updated 02/05/24 @ 17:[address] Arcelia Hutson DO) History of nephrectomy Hx of CABG Social History Smoking Status: Current every day smoker tobacco type: cigarettes Physical Exam Const alert, oriented x3 and no apparent distress HEENT normocephalic Eyes PERRL, conjunctivae normal and no scleral icterus Neck supple Lymph Lymphatic: no lymphadenopathy noted Resp normal respiratory effort and clear to auscultation bilaterally Cardio S1 normal heart sound and S2 normal heart sound GI normal to inspection, nondistended, normoactive bowel sounds Extremity Extremity Narrative: +pedal edema Skin no rashes or lesions noted Neuro CN's II-XII intact bilaterally and moves all extremities Neuro Narrative: Gait slow Psych mental status grossly normal Vital Signs Temperature 97.4 F L 02/06/24 04:03 Temperature Source Oral 02/06/24 04:03 Pulse Rate 79 02/06/24 06:50 Pulse Strength Normal (2+) 02/05/24 10:00 Respiratory Rate 17 02/06/24 06:50 Respiratory Effort Normal, Non-Labored 02/06/24 01:17 Respiratory Depth Normal 02/06/24 01:17 Respiratory Pattern Normal 02/06/24 06:50 Blood Pressure 158/88 H 02/06/24 04:03 Blood Pressure Mean 111 02/06/24 04:03 Blood Pressure Source Monitor 02/06/24 04:03 Blood Pressure Position Semi-Fowlers 02/06/24 04:03 Blood Pressure Location Right Arm 02/06/24 04:03 Pulse Ox 96 02/06/24 06:50 Oxygen Delivery Method Room Air 02/06/24 06:50 Oxygen Flow Rate (L/min) 3 02/05/24 14:58 Laboratory Results - last 24 hr 02/05/24 06:37: WBC 3.2 L, RBC 1.85 L, Hgb 6.8 L, Hct 21.7 L, MCV 117.3 H, MCH 36.8 H, MCHC 31.3 L, RDW Std Deviation 88.5 H, RDW Coeff of [place]in[place] 20.4 H, Plt Count 57 L, MPV 13.0 H, Immature Gran % (Auto) 0.600, Neut % (Auto) 66.5, Lymph % (Auto) 26.5, Sharkey % (Auto) 1.2, Eos % (Auto) 4.9, Baso % (Auto) 0.3, Absolute Neuts (auto) 2.2, Absolute Lymphs (auto) 0.86, Nucleated RBC % 0.9, Differential Comment SCANNED, Platelet Estimate MKD DEC, Anisocytosis 2+ 02/05/24 18:15: Immature Plt Fraction 5.8, Retic Count 3.30 H, Immature Retic Fraction 21.50 H, Retic Hgb Equivalent 34.2, Iron 84, TIBC 171 L, Iron Saturation 49.1, Ferritin 608 H, B-Natriuretic Peptide > 5000.0 H, Vitamin B12 924 H, Folate 7.10, Hep Bs Antigen Non-Reactive, Hep Bs Antibody Non-Reactive, Hepatitis C Antibody Non-Reactive, HIV 1&2 Antibody Non-Reactive, Blood Type B POSITIVE, Antibody Screen NEGATIVE, Direct Antiglob Test NEG w/POLYSPECIFIC, Crossmatch See Detail 02/05/24 18:15: Crossmatch See Detail 02/05/24 20:30: Urine Color Yellow, Urine Clarity Clear, Urine pH 6.0, Ur Specific [place] 1.015, Urine Protein 500 H, Urine Glucose (UA) Normal, Urine Ketones Negative, Urine Occult Blood 10 H, Urine Nitrite Negative, Urine Bilirubin Negative, Urine Urobilinogen Normal, Ur Leukocyte Esterase Negative, Urine RBC 0 SEEN, Urine WBC 0 SEEN, Ur Squamous Epith Cells 0 SEEN, Urine Bacteria RARE, Urine Mucus 0 SEEN, Ur Random Sodium 41, Urine Creatinine 67.60 02/06/24 06:40: WBC 3.2 L, RBC 2.62 L, Hgb 8.8 L, Hct 28.3 L, MCV 108.0 H D, MCH 33.6 H, MCHC 31.1 L, RDW Std Deviation 96.6 H, RDW Coeff of [place]in[place] 24.8 H, Plt Count 49 L*, MPV 12.3 H, Immature Gran % (Auto) 0.900, Neut % (Auto) 64.7, Lymph % (Auto) 27.8, Sharkey % (Auto) 1.3, Eos % (Auto) 5.0, Baso % (Auto) 0.3, Absolute Neuts (auto) 2.1, Absolute Lymphs (auto) 0.88, Nucleated RBC % 1.3, Diff Path Review May foll, Platelet Estimate MOD DEC, Anisocytosis 2+, PT 15.7 H, INR 1.3, APTT 30.9, Phosphorus 3.8, Magnesium 1.0 L Microbiology 02/05/24 01:15 Stool Stool Occult Blood (LUCY) - Final Diagnostic Data Chest X-Ray 02/04/24 19:55 IMPRESSION: Left lower lobe infiltrate with pleural effusion. Findings consistent with pneumonia. Recommend follow-up to complete resolution. Electronically Signed: Billy Kim MD at 20:37 EDT , Chest/Abdomen/Pelvis CT 02/05/24 17:23 IMPRESSION: Large mass of the right kidney consistent with neoplastic malignancy. Contrast-enhanced exam recommended for further evaluation. There is severe atrophy of the left kidney. Abdominal aortic aneurysm. Colonic diverticulosis. No obstruction. Left lower abdominal wall hernia containing bowel. Lower lung consolidation and pleural effusions. Electronically Signed: Darrion Mortensen MD at 19:11 EDT , Charges/Coding Visit Charges Office Visits / Consults: 64193 IP Consult L3
[2024-02-06] MEDS: Ensure Plus High Protein 120 ML LIQUID PO (10:01)
[2024-02-06] MEDS: Pantoprazole Sodium 20 MG Tablet PO (10:01)
[2024-02-06] MEDS: Atenolol 25 MG Tablet PO (10:01)
[2024-02-06] MEDS: Magnesium Chloride 64 MG Delay Rel.Tablet 128 MG PO (10:01)
[2024-02-06] MEDS: Multivitamins,Therapeutic Tablet 1 TABLET PO (10:01)
--- NOTE | 2024-02-06 10:13 | CASEMGMT ---
Social Work SW met with pt and introduced self and role of SW. SW inquiring about discharge plan with pt. Pt stating that he would like to be transferred to the [place] [facility] for care and he would like to know why he has not been accepted there. SW will look into this. Pt states that if he is ready for discharge he feels like he can return home alone. SW inquired about HHC and pt is agreeable to this. Pt would like referral to [place] to restart home health aid process and would like a referral to [facility]. Pt states he has a walker and cane at home that he can use when he returns home. SW spoke with RNCM and physician who are agreeable pt is appropriate for further followup at [facility]. RNCM to follow up on this. WILLY Mart
--- NOTE | 2024-02-06 10:13 | CASEMGMT ---
Addendum entered by Matilde Urbina 02/06/24 16:04: MEAGAN JEONG into pt room, [facility] but that it may not happen if approved until tomorrow or Sunday. Pt agreeable to this. Pt states everything today is such an effort, more than yesterday. Pt denies needing his nurse or any other needs at this time. Addendum entered by Matilde Urbina 02/06/24 15:40: Received tc from Main at the [facility], he is aware that [facility]. He requested pt chart to be faxed. Faxed at this time to [phone]. All progress notes, consults, labs, vitals, therapy notes, current meds faxed. He states he will present to the physician and will get back to this RN CM tomorrow. If pt were to trf, it would be or Sunday. Updated hospitalist. Addendum entered by Matilde Urbina 02/06/24 10:52: [id number]- RN JEAN-PAUL into pt room, pt sitting up in chair. [facility] is aware that the [facility] and his CM will be in at 3pm and a message was left for him. He is aware that this RN CM will keep him updated with any progress. Pt is appreciative of the information. Original Note: Received notification from RAD and hospitalist that pt would like to be trf'd to [facility] for further work up. TC to transfer center, pt has been assigned rehabilitation case coordinator Main who works 2nd shift and comes in [place] 3pm. [place] [phone]. There is no one covering for him and RN CM must wait until he returns call when he comes in per rep. Left message on Main's voicemail that pt wishes to be trf'd and requested returned call.
--- NOTE | 2024-02-06 14:50 | CON.PCM.RE_ITS ---
Assessment & Plan Assessment/Plan (1) Renal mass, right: PLAN: Huge right renal mass. Likely RCC. (2) LUKE (acute kidney injury): PLAN: Came with a creatinine of 4.5, slightly better at 4.[address] abdomen. Atrophic left kidney, right kidney is essentially replaced by mass. Mass is about 9 to 10 cm. He says he knew about the mass for several years now and follow-up with [facility] urology/nephrology. He did not want dialysis after nephrectomy since that is only working kidney hence surgery was not pursued. 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 He still not interested in dialysis. Given most of his care is from [facility], it is probably better if he gets transferred back to [facility] for continued T of care. Not acutely uremic. Has massive peripheral edema but breathing looks stable. dw hospitalist. transfer to be initiated HPI Consult Data Date of Consult: 02/06/24 HPI Narrative Reason for Consultation: Acute renal failure HPI Narrative: TONIA DOLAN, is a 83 M who presents To the hospital with massive lower extremity edema. Nephrology on consultation in view of acute renal failure. Limited history. Most of his records are from [facility]. No prior baseline kidney function available. He says he has seen nephrology at [facility] in the past, possibly urology as well. Current creatinine about 4.1. No uremia. Massive lower extremity edema which he says has been worsening over the last several weeks. Breathing looks comfortable. Poor appetite. Possibly some muscle weight loss recently. [facility] Medical History (Updated 02/06/24 @ 12:[address] Elvis Pickens MD) GERD (gastroesophageal reflux disease) Hyperlipidemia Anxiety Depression CKD (chronic kidney disease), stage IV Renal mass Hypertension Home Medications ?Medication ?Instructions ?Recorded ?Last Taken ?Type albuterol 90 mcg/actuation aerosol 90 mcg inhalation BID 02/05/24 Unknown History inhaler amlodipine 2.5 mg tablet 2.5 mg PO DAILY 02/05/24 Unknown History aspirin 81 mg tablet,delayed 81 mg PO DAILY 02/05/24 Unknown History release atenolol 25 mg tablet 25 mg PO DAILY 02/05/24 Unknown History buspirone 5 mg tablet 15 mg PO .HS 02/05/24 Unknown History cyanocobalamin (vitamin B-12) 1,000 mcg PO DAILY 02/05/24 Unknown History 1,000 mcg tablet (Vitamin B-12) lisinopril 10 mg tablet 10 mg PO DAILY 02/05/24 Unknown History magnesium oxide 400 mg PO DAILY 02/05/24 Unknown History mirtazapine 45 mg tablet 45 mg PO QHS 02/05/24 Unknown History niacinamide 500 mg tablet 500 mg PO TID 02/05/24 Unknown History pantoprazole 20 mg tablet,delayed 20 mg PO DAILY 02/05/24 Unknown History release zinc acetate 50 mg (zinc) capsule 50 mg PO DAILY 02/05/24 Unknown History Allergy/AdvReac Type Severity Reaction Status Date / Time No Known Allergies Allergy Verified 02/04/24 19:35 Surgical History (Updated 02/05/24 @ 17:[address] Arcelia Hutson DO) History of nephrectomy Hx of CABG Social History Smoking Status: Current every day smoker tobacco type: cigarettes ROS ROS Narrative negative except above Physical Exam Narrative Alert awake oriented x 3 no obvious distress no pallor no icterus no JVD s1s2 no murmurs lungs clear abdomen soft no organomegaly ++++ edema no cyanosis Lab / Micro Data 02/06/24 06:40 02/05/24 06:37 Labs: Laboratory Results - last 24 hr 02/05/24 18:15: Immature Plt Fraction 5.8, Retic Count 3.30 H, Immature Retic Fraction 21.50 H, Retic Hgb Equivalent 34.2, Iron 84, TIBC 171 L, Iron Saturation 49.1, Ferritin 608 H, B-Natriuretic Peptide > 5000.0 H, Vitamin B12 924 H, Folate 7.10, Hep Bs Antigen Non-Reactive, Hep Bs Antibody Non-Reactive, Hepatitis C Antibody Non-Reactive, HIV 1&2 Antibody Non-Reactive, Blood Type B POSITIVE, Antibody Screen NEGATIVE, Direct Antiglob Test NEG w/POLYSPECIFIC, Crossmatch See Detail 02/05/24 18:15: Crossmatch See Detail 02/05/24 20:30: Urine Color Yellow, Urine Clarity Clear, Urine pH 6.0, Ur Specific [place] 1.015, Urine Protein 500 H, Urine Glucose (UA) Normal, Urine Ketones Negative, Urine Occult Blood 10 H, Urine Nitrite Negative, Urine Bilirubin Negative, Urine Urobilinogen Normal, Ur Leukocyte Esterase Negative, Urine RBC 0 SEEN, Urine WBC 0 SEEN, Ur Squamous Epith Cells 0 SEEN, Urine Bacteria RARE, Urine Mucus 0 SEEN, Ur Random Sodium 41, Urine Creatinine 67.60 02/06/24 06:40: WBC 3.2 L, RBC 2.62 L, Hgb 8.8 L, Hct 28.3 L, MCV 108.0 H D, MCH 33.6 H, MCHC 31.1 L, RDW Std Deviation 96.6 H, RDW Coeff of Corin[place] 24.8 H, Plt Count 49 L*, MPV 12.3 H, Immature Gran % (Auto) 0.900, Neut % (Auto) 64.7, Lymph % (Auto) 27.8, Mccormick % (Auto) 1.3, Eos % (Auto) 5.0, Baso % (Auto) 0.3, Absolute Neuts (auto) 2.1, Absolute Lymphs (auto) 0.88, Nucleated RBC % 1.3, Diff Path Review May foll, Platelet Estimate MOD DEC, Anisocytosis 2+, PT 15.7 H, INR 1.3, APTT 30.9, Phosphorus 3.8, Magnesium 1.0 L Micro: Microbiology 02/05/24 01:15 Stool Stool Occult Blood (LUCY) - Final Imaging Radiology Impression Echocardiogram 02/05/24 17:17 Interpretation Summary Mildly dilated left ventricle. Moderate global left ventricular hypokinesis. Estimated LVEF 40%. Grade 2 diastolic dysfunction. Mild global right ventricular systolic dysfunction. There is mild biatrial dilatation. Moderate to severe posteriorly directed mitral valve regurgitation. Mild tricuspid valve insufficiency. Right ventricular systolic pressure estimated to be 54 mmHg. Aortic valve leaflet excursion limited. Consider mild aortic valve stenosis. Mild (1+) pulmonic valve insufficiency. Moderate size left pleural effusion. Ordering Physician: Arcelia Hutson Referring Physician: [facility] Performed By: Marie Gutierrez, ORLIN, RVT Chest/Abdomen/Pelvis CT 02/05/24 17:23 IMPRESSION: Large mass of the right kidney consistent with neoplastic malignancy. Contrast-enhanced exam recommended for further evaluation. There is severe atrophy of the left kidney. Abdominal aortic aneurysm. Colonic diverticulosis. No obstruction. Left lower abdominal wall hernia containing bowel. Lower lung consolidation and pleural effusions. Electronically Signed: Darrion Mortensen MD at 19:11 EDT ,
[2024-02-06] MEDS: Mirtazapine 15 MG Tablet 7.5 MG PO (21:17)
[2024-02-06] MEDS: busPIRone 15 MG TABLET PO (21:18)
[2024-02-06] MEDS: Menthol/Lanolin/Calamine/Znox 113 GM Tube 1 APPLIC TOPICAL (22:38)
--- NOTE | 2024-02-07 00:09 | PCM.HOSP.N ---
Hospitalist Note Patient very jumpy and mildly agitated this evening. From review of records he had been changed from 45 mg down to 7 mg of mirtazapine and a very quick timeline. From review of records it appears this was secondary to renal dysfunction. Reviewed with pharmacy and following discussions they noted that certainly this was a very quick jump and given current renal function was appropriate to at least go up to 15 mg if not 30 mg. Will order another dose of 7.5 mg x 1 now and then transition to 15 mg nightly.
[2024-02-07 00:16] VITALS: BP 133/87; PULSE 68; RESP 18; TEMP 36.9; O2SAT 100
[2024-02-07] MEDS: Mirtazapine 15 MG Tablet 7.5 MG PO (00:32)
[2024-02-07] MEDS: Acetaminophen 325 MG Tablet 650 MG PO (00:35)
[2024-02-07] MEDS: MELATONIN 10 MG TABLET PO (00:57)
[2024-02-07 04:23] VITALS: BP 131/85; PULSE 70; RESP 18; TEMP 36.5; O2SAT 100
--- NOTE | 2024-02-07 07:12 | PN.HOSP_ITS ---
Reason for Visit Reason for Visit: Diagnoses Nutritional anemia, unspecified (02/05/24) Other pancytopenia (02/05/24) Unspecified severe protein-calorie malnutrition (02/05/24) Other disorders of plasma-protein metabolism, not elsewhere classified (02/05/24) Lymphedema, not elsewhere classified (02/05/24) Pneumonia, unspecified organism (02/05/24) Pleural effusion, not elsewhere classified (02/05/24) Acute kidney failure, unspecified (02/05/24) Chronic kidney disease, unspecified (02/05/24) Other specified disorders of kidney and ureter (02/05/24) Localized edema (02/05/24) Adult failure to thrive (02/05/24) Subjective Subjective Patient denies any complaints at this time. Objective Data Objective Data Vital Signs: Vital Signs Temp Pulse Resp BP Pulse Ox O2 Del Method O2 Flow Rate 36.5 C L 70 18 131/85 H 100 Room Air 3 02/07/24 04:23 02/07/24 04:23 02/07/24 04:23 02/07/24 04:23 02/07/24 04:23 02/07/24 04:30 02/05/24 14:58 Oxygen Flow Rate (L/min) 3 Oxygen Delivery Method Room Air Weight: 63.5 kg Body Mass Index (BMI) 21.9 Intake & Output: Intake and Output for Last 24 Hours 02/05/24 02/06/24 02/07/24 23:59 23:59 23:59 Intake Total 3101.25 / 3101.25 1952 / 1952 Output Total 800 / 1050 250 / 250 Balance 2301.25 / 2051.25 1702 / 1702 Lab / Micro Data 02/07/24 06:25 02/07/24 06:25 Labs: Laboratory Results - last 24 hr 02/05/24 18:15: Crossmatch See Detail 02/06/24 06:40: WBC 3.2 L, RBC 2.62 L, Hgb 8.8 L, Hct 28.3 L, MCV 108.0 H D, MCH 33.6 H, MCHC 31.1 L, RDW Std Deviation 96.6 H, RDW Coeff of Corinna 24.8 H, Plt Count 49 L*, MPV 12.3 H, Immature Gran % (Auto) 0.900, Neut % (Auto) 64.7, Lymph % (Auto) 27.8, Drew % (Auto) 1.3, Eos % (Auto) 5.0, Baso % (Auto) 0.3, Absolute Neuts (auto) 2.1, Absolute Lymphs (auto) 0.88, Nucleated RBC % 1.3, Diff Path Review May foll, Platelet Estimate MOD DEC, Anisocytosis 2+, PT 15.7 H, INR 1.3, APTT 30.9, Phosphorus 3.8, Magnesium 1.0 L Micro: Microbiology 02/05/24 01:15 Stool Stool Occult Blood (LUCY) - Final Radiography Diagnostic Testing: Radiology Impression Echocardiogram 02/05/24 17:17 Interpretation Summary Mildly dilated left ventricle. Moderate global left ventricular hypokinesis. Estimated LVEF 40%. Grade 2 diastolic dysfunction. Mild global right ventricular systolic dysfunction. There is mild biatrial dilatation. Moderate to severe posteriorly directed mitral valve regurgitation. Mild tricuspid valve insufficiency. Right ventricular systolic pressure estimated to be 54 mmHg. Aortic valve leaflet excursion limited. Consider mild aortic valve stenosis. Mild (1+) pulmonic valve insufficiency. Moderate size left pleural effusion. Ordering Physician: Arcelia Hutson Referring Physician: [facility] Performed By: Marie Gutierrez, ORLIN, RVT Physical Exam Const Constitutional Narrative: Patient is no acute distress and afebrile. Has head down on his bedside table while sitting in the chair. Does awake easily. HEENT HEENT Narrative: Large mass underneath the left mandible. Temporal wasting. Resp normal respiratory effort, no retractions, no use of accessory muscles and clear to auscultation bilaterally Extremity Extremity Narrative: Bilateral lower extremity edema dependent 4. Bilateral legs were wrapped in Pantera wrap's. Neuro oriented x3 and moves all extremities Sensorium / Orientation: awake and alert Speech: speech normal Psych Psych Narrative: Flat affect Assessment & Plan Assessment/Plan (1) Pancytopenia: (2) Lower extremity edema: (3) LUKE (acute kidney injury): (4) Severe malnutrition: (5) Pleural effusion, right: PLAN: Plan Pancytopenia * Suspect malignancy associated. * Hold aspirin * HIV and hepatitis negative. Coagulation studies negative. Iron studies, B12, folate WNL. Stool guaiac negative. * Transfused 2 units packed red blood cells now. * Consult hematology/oncology LUKE on CKD stage IV * Patient with history of nephrectomy due to renal cell carcinoma * Baseline creatinine is unclear however he was seen in the emergency department on 11/10/2023 and serum creatinine was 3.51 on admission was 4.45 * Hold lisinopril * Continue gentle hydration but transition to LR * CT w/o contrast showed large mass right kidney * Consult nephrology Renal mass. * 9.2 cm * oncology consulted. * Likely malignant. Patient has been made aware of this mass for years now but did not wish to have it removed because he has an atrophic left kidney and he did not want to go onto dialysis. Lower extremity edema * BNP elevated. * echo pending Bilateral pleural effusion * Doubt PNA Generalized weakness/debility * PT OT Severe malnutrition * dietitian is following. Add multivitamin. Continue Ensure Chronic conditions: * Left facial mass-Patient reports he had this biopsied and it was not malignant-[facility] * GERD-Continue home PPI * Essential HTN/HPL/CAD-Appears this patient has had previous bypass as there are sternotomy wires on chest x-ray-Hold lisinopril-Hold amlodipine-Continue home atenolol-Hold niacinamide * Depression/anxiety-Continue mirtazapine but alter dose from 45 mg daily to 7.5 mg daily due to renal dysfunction-Continue home BuSpar DVT prophylaxis: SCDs Advance care planning: Spent an additional 30 minutes discussed with the patient. Told him that he likely has some some sort of malignancy, more likely renal cell cancer, involving his right kidney. That he has known about for years but did not want to to any treatments as he would likely want up on dialysis as you have probably required a right-sided nephrectomy. With patient having an atrophic left kidney that would more or less and winding up on dialysis. He tells me is indication for not doing dialysis that he is to be plugged into machine multiple times per week and is why elected not to do anything additional at that time. Emphasized that these are his decisions and I would strongly respect where he wishes to do but I recommended to him, with a worsening mass, as well as his overall condition that his likelihood of quality of life proceeding with aggressive measures may be low and I recommended hospice. He was in agreement to speaking with hospice to see what services could be provided for him. So I did discuss case with case management and social work to look into seeing about what measures could be done for him for hospice. So we will hold off on transferring the patient to the [facility] at this time until that can be further elucidated Charges/Coding Visit Charges Inpatient E&M: 99491 Subs Hosp L2 Procedures Hospitalists Procedures: 66907 Critical Care Addl 30 Min
[2024-02-07 07:19] LABS: Absolute Lymphocyte Count 0.69 X10^3/uL (0.83-4.51); Absolute Neutrophil Count 1.5 X10^3/uL (2.0-7.7); Eosinophil# 0.12 X10^3/uL; Hematocrit 26.9 % (40-54); Hemoglobin 8.3 g/dL (13.0-16.5); Lymphocyte # 0.69 X10^3/ul (0.83-4.51); Lymphocyte % 28.9 % (19-41); Mean Corp Hgb Conc 30.9 g/dL (32-36); Mean Corpuscular Hgb 33.3 pg (27.0-32.0); Mean Platelet Vol. 11.9 fl (6.2-12.0); Monocyte# 0.04 X10^3/uL; Monocyte% 1.7 % (0-10); NRBC Flagged by Analyzer 0.8 % (0-5); Neutrophil # 1.52 X10^3/uL (2.7-7.7); Neutrophil % 63.6 % (47-70); POSITIVE COUNT YES; POSITIVE MORPHOLOGY YES; RBC Distribution Width CV 24.3 % (11.6-14.6); RBC Distribution Width SD 95.1 fl (35.1-43.9); Red Blood Count 2.49 M/mm3 (4.6-6.2); White Blood Count 2.4 K/mm3 (4.4-11.0)
[2024-02-07 07:28] LABS: Differential Indicated SCAN CRITERIA MET
[2024-02-07 07:37] VITALS: O2SAT 95
[2024-02-07 07:48] LABS: Anion Gap 8 (5-15); BUN 73 mg/dL (7-18); Calcium,Total 7.2 mg/dL (8.5-10.1); Chloride 108 mmol/L (98-107); Creatinine, Serum 4.05 mg/dL (0.70-1.30); EST Glomerular Filtration Rate 15 mL/min (>60); Est Glom Filt Rate - Afr Amer 18 mL/min (>60); Estimated Creatinine Clearance 12.85 ml/min; Glucose 114 mg/dL (74-106); Potassium 4.5 mmol/L (3.5-5.1); Sodium Level 136 mmol/L (136-145)
--- NOTE | 2024-02-07 08:23 | CPS ---
Pt asked RT to come back later, said he didnt want to do treatment right now
[2024-02-07 10:23] LABS: Pathologist Review Reviewed
--- NOTE | 2024-02-07 10:23 | CASEMGMT ---
Social Work Per physician, pt is appropriate and agreeable to hospice referral. SW met with pt and explained that referral would be made to hospice and inquired if pt would we agreeable to [facility]. Pt is agreeable. SW asked if he had a support person that could be called and pt declines stating he does not have anyone left, all siblings have . Pt inquired about nieces or nephews and pt denied having a relationship with them and reiterates there is no one to call. Clinicals faxed to [facility] and referral made. [facility] notified that they can come to see pt as he is his own person with no family. [facility] will notify this SW with appt time. WILLY Redman
[2024-02-07 10:35] LABS: Platelet Count 42 K/mm3 (150-450)
[2024-02-07 10:36] LABS: Anisocytosis 2+; Differential Comment SCANNED
[2024-02-07 10:37] LABS: Platelet Estimate MOD DEC (ADEQ)
[2024-02-07 10:38] LABS: Macrocytosis 2+; Ovalocyte 1+; Schistocytes 1+
[2024-02-07 10:40] VITALS: BP 126/79; PULSE 85; RESP 20; TEMP 36.8; O2SAT 98
[2024-02-07] MEDS: Atenolol 25 MG Tablet PO (10:53)
[2024-02-07] MEDS: Magnesium Chloride 64 MG Delay Rel.Tablet 128 MG PO (10:54)
[2024-02-07] MEDS: Pantoprazole Sodium 20 MG Tablet PO (10:54)
[2024-02-07] MEDS: Multivitamins,Therapeutic Tablet 1 TABLET PO (10:54)
--- NOTE | 2024-02-07 13:00 | CASEMGMT ---
Social Work Return call from [facility] and they are able to see pt today at 5pm. SW met with pt and informed of hospice visit. Pt stating that he has had a bad day and does not want to speak to anyone today. SW encouraged pt to meet with hospice to at least hear what they have to offer. SW to continue to follow. WILLY Redman
[2024-02-07 13:16] VITALS: PULSE 88; RESP 18
[2024-02-07] MEDS: Albuterol 2.5 MG/3 ML VIAL.NEB. INHALATION (13:16)
--- NOTE | 2024-02-07 15:00 | NURSING ---
Patient asked to speak with this RN. States he wants to leave one way or another. This RN asked why and he states he is tired of people hovering over him. He states he is tired of all the alarms going off (referencing the bed alarm and chair alarm for safety). Patient was educated numerous times this shift from multiple staff members regarding why he has bed and chair alarms and was given safety education regarding transferring. Patient continues to be frustrated with alarms and just wants out of here. and RAD made aware.
--- NOTE | 2024-02-07 15:55 | DS.PCM_ITS ---
Providers Date of Admission: 02/05/24 Primary Care Physician: [facility] Consultations 02/05/24 17:20 Consult: Oncology/Hematology Routine Consulting Provider: [facility] ([facility]) Reason for Consult: Pancytopenia EMERGENT Consult: No Notified: Yes Date Notified: 02/05/24 Time Notified: 17:48 Method of Notification: Verbal 02/05/24 17:24 Consult: Nephrology Routine Consulting Provider: Tere Sanchez Reason for Consult: CKD/Solitary kidney EMERGENT Consult: No MD Notified: Yes Date Notified: 02/05/24 Time Notified: 17:45 Method of Notification: Text 02/07/24 14:07 Consult: Hospice / Palliative Care Routine Consulting Provider: [facility] Reason for Consult: Kidney mass. LUKE. EMERGENT Consult: No Notified: Yes Date Notified: 02/07/24 Time Notified: 14:07 Method of Notification: per SW Reason For Visit: FAILURE TO THRIVE, PNEUMONIA, EDEMA Diagnosis Discharge Diagnosis (1) Pancytopenia: Status: Acute Code(s): D61.818 - Other pancytopenia (2) Lower extremity edema: Status: Acute Code(s): R60.0 - Localized edema (3) LUKE (acute kidney injury): Status: Acute Code(s): N17.9 - Acute kidney failure, unspecified (4) Severe malnutrition: Status: Acute Code(s): E43 - Unspecified severe protein-calorie malnutrition (5) Pleural effusion, right: Status: Acute Code(s): J90 - Pleural effusion, not elsewhere classified Plan Pancytopenia * Suspect malignancy associated. * Hold aspirin * HIV and hepatitis negative. Coagulation studies negative. Iron studies, B12, folate WNL. Stool guaiac negative. * Transfused 2 units packed red blood cells now. * Consult hematology/oncology LUKE on CKD stage IV * Patient with history of nephrectomy due to renal cell carcinoma * Baseline creatinine is unclear however he was seen in the emergency department on 11/10/2023 and serum creatinine was 3.51 on admission was 4.45 * Hold lisinopril * Continue gentle hydration but transition to LR * CT w/o contrast showed large mass right kidney * Consult nephrology Renal mass. * 9.2 cm * oncology consulted. * Likely malignant. Patient has been made aware of this mass for years now but did not wish to have it removed because he has an atrophic left kidney and he did not want to go onto dialysis. Lower extremity edema * BNP elevated. * echo pending Bilateral pleural effusion * Doubt PNA Generalized weakness/debility * PT OT Severe malnutrition * dietitian is following. Add multivitamin. Continue Ensure Chronic conditions: * Left facial mass-Patient reports he had this biopsied and it was not malignant-[facility] * GERD-Continue home PPI * Essential HTN/HPL/CAD-Appears this patient has had previous bypass as there are sternotomy wires on chest x-ray-Hold lisinopril-Hold amlodipine-Continue home atenolol-Hold niacinamide * Depression/anxiety-Continue mirtazapine but alter dose from 45 mg daily to 7.5 mg daily due to renal dysfunction-Continue home BuSpar DVT prophylaxis: SCDs Advance care planning: Spent an additional 30 minutes discussed with the patient. Told him that he likely has some some sort of malignancy, more likely renal cell cancer, involving his right kidney. That he has known about for years but did not want to to any treatments as he would likely want up on dialysis as you have probably required a right-sided nephrectomy. With patient having an atrophic left kidney that would more or less and winding up on dialysis. He tells me is indication for not doing dialysis that he is to be plugged into machine multiple times per week and is why elected not to do anything additional at that time. Emphasized that these are his decisions and I would strongly respect where he wishes to do but I recommended to him, with a worsening mass, as well as his overall condition that his likelihood of quality of life proceeding with aggressive measures may be low and I recommended hospice. He was in agreement to speaking with hospice to see what services could be provided for him. So I did discuss case with case management and social work to look into seeing about what measures could be done for him for hospice. So [facility] at [facility] until that can be further elucidated Medications at Discharge Home Medications albuterol 90 mcg/actuation aerosol inhaler 90 mcg inhalation BID 02/05/24 buspirone 5 mg tablet 15 mg PO .HS 02/05/24 mirtazapine 45 mg tablet 45 mg PO QHS 02/05/24 pantoprazole 20 mg tablet,delayed release 20 mg PO DAILY 02/05/24 zinc acetate 50 mg (zinc) capsule 50 mg PO DAILY 02/05/24 Hospital Course Operations None Procedures None Summary of Care Provided Minutes Spent on Discharge: 60 Hospital Course: Patient presents with shortness of breath. Patient was found to have pancytopenia was likely short of breath due to anemia and was transfused 2 units of prior blood cells. Hemoglobin is remained stable. Etiology of his pancytopenia is unclear but it seems likely that this is malignancy induced. Patient had noted on CAT scan a 9.2 cm right renal mass. Upon further inquiry, patient had known mass in his right [facility], including nephrectomy because he had an atrophic left kidney and did not want to be on dialysis. Patient on the demand to be [place] but the home health care case manager was not available until 1500 and I went to case management discussed with the other home health care case manager is at the doctor would not be able to reviewed until the . I discussed with the patient today about his prognosis being poor given his right renal mass, pancytopenia as well as acute kidney injury. And I recommended hospice. He was agreeable to this. Plan is for the patient to meet with hospice and they are planning to come in today at 1700, however at around 1530, he stated that he needed to go home, that he is tired the alarm going off whenever he stands up (patient is a fall risk) and demand to go home. I did previously expressed to him my concern about the poor prognosis of being likely weeks to months. I did strongly encourage that he meet with hospice when they come to his house. He reluctantly agreed. Patient does not want to go to [place]. Patient will be discharged home with hospice to see him at home. His long-term prognosis is poor. Weight / BMI Weight Weight: 63.5 kg Body Mass Index (BMI) 21.9 ABG / Lab / Microbiology Data 02/07/24 06:25 02/07/24 06:25 Laboratory: Laboratory Results - last 24 hr 02/06/24 06:40: Diff Path Review Reviewed 02/07/24 06:25: WBC 2.4 L, RBC 2.49 L, Hgb 8.3 L, Hct 26.9 L, MCV 108.0 H, MCH 33.3 H, MCHC 30.9 L, RDW Std Deviation 95.1 H, RDW Coeff of [place] 24.3 H, Plt Count 42 L*, MPV 11.9, Immature Gran % (Auto) 0.800, Neut % (Auto) 63.6, Lymph % (Auto) 28.9, [place] % (Auto) 1.7, Eos % (Auto) 5.0, Baso % (Auto) 0.0, Absolute Neuts (auto) 1.5 L, Absolute Lymphs (auto) 0.69 L, Nucleated RBC % 0.8, Differential Comment SCANNED, Diff Path Review May foll, Platelet Estimate MOD DEC, Anisocytosis 2+, Macrocytosis 2+, Ovalocytes 1+, Schistocytes 1+, Sodium 136, Potassium 4.5, Chloride 108 H, Carbon Dioxide 20.0 L, Anion Gap 8, BUN 73 H , Creatinine 4.05 H, Estim Creat Clear Calc 12.85, Est GFR (MDRD) Af Amer 18 L, Est GFR (MDRD) Non-Af 15 L, BUN/Creatinine Ratio 18.0, Glucose 114 H, Calcium 7.2 L Microbiology: Microbiology 02/05/24 01:15 Stool Stool Occult Blood (LUCY) - Final D/C Instructions Discharge Diet: No restrictions Meaningful Use Info Meaningful Use Meaningful Use Diagnoses (Choose all that apply): None applicable Ischemic Stroke Statin Dosing Therapy Reference: STATIN DOSE THERAPY REFERENCE: * Patients > 75 years receive moderate or high dose statin therapy. * Patients 75 years or YOUNGER should receive HIGH intensity statin dose unless contraindicated. You will be required to document reason for non-treatment if statin daily dose does not meet guidelines. HIGH DOSE STATIN THERAPY DAILY Atorvastatin > than or = to 40 mg Rosuvastatin > than or = to 20 mg Amlodipine + Atorvastatin > than or = to 2.5/40 mg Ezetimibe + Simvastatin 10/80 mg Simvastatin 80mg Discharge Plan Admission Admit Date/Time: 02/05/24 14:52 Primary Reason for Your Visit: Pancytopenia, renal mass. Attending Provider: Kp Hood Primary Care Provider: [facility],[place] Consulting Providers: Martin Rice; Tere Sanchez; Charlie Beach; Elvis Pickens; Henny Lee; Aaron Hughes; Noé Mccarthy; Brad Epstein; Richie Clark; Gwen Rangel NP; Arcelia Hutson; Charlie Delgado; Brittaney Montgomery; Sabina Del Valle; Harper Nieves TEMPLATE INSPECTOR Instructions Patient Instructions: Anemia, ED Peripheral Edema, Bilateral Additional Instructions / Restrictions: 1. Must elevate feet above your nose 2. Need compressive thigh-high hose 3. Wound care for blisters on the feet Your white blood cells, red blood cells and platelets are low. He required 2 units of packed red blood cells while you are here. Your low blood count was likely the cause of your shortness of breath. Your bone marrow may be failing because of likely malignancy involving your kidney. Please meet with hospice when they are coming out to your house to further help you in regards to quality of life as I do feel that your prognosis is poor. If you do have new issues that develop such as worsening shortness of breath, please return to the emergency room. Discharge Orders/Prescriptions Prescriptions: Continued mirtazapine 45 mg tablet 45 mg PO QHS albuterol 90 mcg/actuation aerosol 90 mcg inhalation BID pantoprazole 20 mg tablet,delayed release (DR/EC) 20 mg PO DAILY buspirone 5 mg tablet 15 mg PO .HS zinc acetate 50 mg (zinc) capsule 50 mg PO DAILY Discontinued lisinopril 10 mg tablet 10 mg PO DAILY amlodipine 2.5 mg tablet 2.5 mg PO DAILY cyanocobalamin (vitamin B-12) [Vitamin B-12] 1,000 mcg tablet 1,000 mcg PO DAILY magnesium oxide 400 mg magnesium tablet 400 mg PO DAILY aspirin 81 mg tablet,delayed release (DR/EC) 81 mg PO DAILY niacinamide 500 mg tablet 500 mg PO TID atenolol 25 mg tablet 25 mg PO DAILY Referrals / Follow Up: [facility] of [facility]Non-Staff[facility] - Disposition Disposition (needs filled in before D/C Order can be placed): Home, Self Care Charges/Coding Visit Charges Inpatient E&M: 62721 Disch Hosp >30min
--- NOTE | 2024-02-07 15:59 | CASEMGMT ---
TC to [facility] at [facility], the CM, to make aware pt will dc today and follow up with hospice at home. [facility] trf cancelled at this time.
--- NOTE | 2024-02-07 16:07 | CASEMGMT ---
Addendum entered by Genesis Loyola 02/07/24 16:23: Social Work Phone call to WILLY Tripp at the [place] and requested she follow up with pt at home for home based aid services. RAD also informed Qasim of hospice referral. Qasim to follow up with pt at home. Referral made to [facility]. WILLY Redman Original Note: Social Work Nursing reporting that pt is upset and asking to discharge. SW met with pt. Pt expressing his frustration with hovering staff as pt is being monitored by nursing staff for safety. SW provided active listening and support to pt. [facility] as well as meeting with hospice. Pt stating he no [facility] and he will not talk to hospice today but will talk to them. Pt agreeable to speak with physician regarding discharge but states if he is not discharged he will leave AMA. Physician notified. Phone call to León at [facility] and cancelled appointment for today. León will call pt at home tomorrow and set appointment for followup. WILLY Redman
--- NOTE | 2024-02-07 21:56 | PCM.PN.REN ---
Subjective Subjective no new complaints Objective Data Objective Data Vital Signs: Vital Signs Temp Pulse Resp BP Pulse Ox O2 Del Method O2 Flow Rate 98.2 F 88 18 126/79 H 98 Room Air 3 02/07/24 10:40 02/07/24 13:16 02/07/24 13:16 02/07/24 10:40 02/07/24 10:40 02/07/24 10:45 02/05/24 14:58 Oxygen Flow Rate (L/min) 3 Oxygen Delivery Method Room Air Weight: 63.5 kg Body Mass Index (BMI) 21.9 Intake & Output: Intake and Output for Last 24 Hours 02/05/24 02/06/24 02/07/24 23:59 23:59 23:59 Intake Total 3101.25 / 3101.25 1952 / 1952 550 / 550 Output Total 800 / 1050 250 / 250 Balance 2301.25 / 2051.25 1702 / 1702 550 / 550 Lab / Micro Data 02/07/24 06:25 02/07/24 06:25 Labs: Laboratory Results - last 24 hr 02/06/24 06:40: Diff Path Review Reviewed 02/07/24 06:25: WBC 2.4 L, RBC 2.49 L, Hgb 8.3 L, Hct 26.9 L, MCV 108.0 H, MCH 33.3 H, MCHC 30.9 L, RDW Std Deviation 95.1 H, RDW Coeff of [place] 24.3 H, Plt Count 42 L*, MPV 11.9, Immature Gran % (Auto) 0.800, Neut % (Auto) 63.6, Lymph % (Auto) 28.9, [place] % (Auto) 1.7, Eos % (Auto) 5.0, Baso % (Auto) 0.0, Absolute Neuts (auto) 1.5 L, Absolute Lymphs (auto) 0.69 L, Nucleated RBC % 0.8, Differential Comment SCANNED, Diff Path Review May foll, Platelet Estimate MOD DEC, Anisocytosis 2+, Macrocytosis 2+, Ovalocytes 1+, Schistocytes 1+, Sodium 136, Potassium 4.5, Chloride 108 H, Carbon Dioxide 20.0 L, Anion Gap 8, BUN 73 H, Creatinine 4.05 H, Estim Creat Clear Calc 12.85, Est GFR (MDRD) Af Amer 18 L, Est GFR (MDRD) Non-Af 15 L, BUN/Creatinine Ratio 18.0, Glucose 114 H, Calcium 7.2 L Micro: Microbiology 02/05/24 01:15 Stool Stool Occult Blood (LUCY) - Final Physical Exam Narrative Alert awake oriented x 3 no obvious distress no pallor no icterus no JVD s1s2 no murmurs lungs clear abdomen soft no organomegaly ++++ edema no cyanosis Assessment & Plan Assessment/Plan (1) Renal mass, right: PLAN: Huge right renal mass. Likely RCC. (2) LUKE (acute kidney injury): PLAN: Came with a creatinine of 4.5, slightly better at 4.[address] abdomen. Atrophic left kidney, right kidney is essentially replaced by mass. Mass is about 9 to 10 cm. He says he knew about the mass for several years now and follow-up with [facility]/nephrology. He did not want dialysis after nephrectomy since that is only working kidney hence surgery was not pursued. 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 He still not interested in dialysis. Given most of his care is from [place], it is probably better if he gets transferred back to [place] for continued T of care. Not acutely uremic. Has massive peripheral edema but breathing looks stable. pending bed availability at [place]
[2024-02-08 11:21] LABS: Pathologist Review Reviewed
== END 2024-02-07 17:28 | disposition home or self-care (01) | DRG 808 ==
LOC: ED 20:58 → MS3 22:55
PROVIDERS: Internal Medicine; Admitting Provider Family Medicine; Emergency Provider Emergency Medicine
DX: D61.818 Other pancytopenia (principal); E43 Unspecified severe protein-calorie malnutrition; J90 Pleural effusion, not elsewhere classified; N17.9 Acute kidney failure, unspecified; C64.1 Malignant neoplasm of right kidney, except renal pelvis; N18.4 Chronic kidney disease, stage 4 (severe); D69.6 Thrombocytopenia, unspecified; D63.1 Anemia in chronic kidney disease; E88.09 Other disorders of plasma-protein metabolism, not elsewhere classified; I12.9 Hypertensive chronic kidney disease with stage 1 through stage 4 chronic kidney disease, or unspecified chronic kidney disease; F32.A Depression, unspecified; K21.9 Gastro-esophageal reflux disease without esophagitis; F17.210 Nicotine dependence, cigarettes, uncomplicated; D53.9 Nutritional anemia, unspecified; I25.10 Atherosclerotic heart disease of native coronary artery without angina pectoris; E78.5 Hyperlipidemia, unspecified; Z91.158 Patient's noncompliance with renal dialysis for other reason; F41.9 Anxiety disorder, unspecified; Z90.5 Acquired absence of kidney; R53.81 Other malaise; R62.7 Adult failure to thrive; Z68.21 Body mass index [BMI] 21.0-21.9, adult
CPT/HCPCS: 36415; 71046; 71250; 74176; 80048; 80053; 81001; 82274; 82570; 82607; 82728; 82746; 83540; 83550; 83735; 83880; 84100; 84300; 85025; 85045; 85610; 85730; 86703; 86706; 86803; 86850; 86880; 86900; 86901; 86920; 86922; 87340; 93005; 93306; 94640; 97162; 97166; 97530; 97535; 97802; 99285; 99406; J7030; J7120; P9016; A4216; J1940